=== PATIENT | male | born 1945 | race Caucasian/White ===

== ENCOUNTER → 2020-07-07 | Outpatient (REF) | payer MEDICARE, OTHER | LOC: M LAB REF 19:04 | PROVIDERS: ATTEND Dermatology | DX: C44.712 Basal cell carcinoma of skin of right lower limb, including hip (principal); L90.5 Scar conditions and fibrosis of skin ==

== ENCOUNTER 2021-08-17 14:26 | Emergency (ER) | payer OTHER, MEDICARE ==
[~2021-08-17] VITALS: Ht 185.4 cm; Wt 115.9 kg
[2021-08-17] MEDS ORDERED: LISI20TA35 (14:38)
[2021-08-17] MEDS ORDERED: LATA0.0015 (14:38)
[2021-08-17] MEDS ORDERED: ATOR40TA75 (14:38)
[2021-08-17 16:05] LABS: BASO % 0.4 % (0.0-1.0); EOS % 0.6 % (0.0-3.0); HEMATOCRIT 41.2 % (42.0-52.0); HEMOGLOBIN 14.3 g/dl (13.5-17.5); LYMPH # 2.1 10^3/uL (1.5-5.0); LYMPH % 31.4 % (24.0-44.0); MEAN CORPUSCULAR HEMOGLOBIN 32.2 pg (27.0-33.0); MEAN CORPUSCULAR HGB CONC 34.7 g/dl (32.0-36.5); MEAN CORPUSCULAR VOLUME 92.8 fl (80.0-96.0); MONO # 1.1 10^3/uL (0.0-0.8); MONO % 16.1 % (2.0-8.0); NEUTROPHILS # 3.4 10^3/uL (1.5-8.5); NEUTROPHILS % 50.3 % (36.0-66.0); PLATELET COUNT, AUTOMATED 147 10^3/uL (150-450); RED BLOOD COUNT 4.44 10^6/uL (4.30-6.10); WHITE BLOOD COUNT 6.7 10^3/uL (4.0-10.0)
[2021-08-17 16:37] LABS: ALBUMIN 3.8 GM/DL (3.2-5.2); ALT/SGPT 56 U/L (12-78); BILIRUBIN,DIRECT 0.1 MG/DL (0.0-0.2); BILIRUBIN,TOTAL 0.6 MG/DL (0.2-1.0); BLOOD UREA NITROGEN 18 MG/DL (7-18); CARBON DIOXIDE LEVEL 30 MEQ/L (21-32); CHLORIDE LEVEL 105 MEQ/L (98-107); CREATININE FOR GFR 1.11 MG/DL (0.70-1.30); GLOMERULAR FILTRATION RATE > 60.0 (>42); GLUCOSE, FASTING 166 MG/DL (70-100); SODIUM LEVEL 139 MEQ/L (136-145); TOTAL PROTEIN 6.9 GM/DL (6.4-8.2)
[2021-08-17] MEDS ORDERED: PROHANCE 279.3MG/ML 15ML VIAL As Ordered ONE (17:28)
[2021-08-17] MEDS ORDERED: PROHANCE 279.3MG/ML 5ML VIAL As Ordered ONE (17:28)
[2021-08-17 21:51] LABS: RSV AMPLIFICATION NEGATIVE (NEGATIVE)
[2021-08-17 23:34] VITALS: BP 131/76
== END 2021-08-17 23:37 | disposition short-term general hospital (02) ==
LOC: M ED 14:26
DX: M46.42 Discitis, unspecified, cervical region (principal); G37.9 Demyelinating disease of central nervous system, unspecified; R94.31 Abnormal electrocardiogram [ECG] [EKG]; I10 Essential (primary) hypertension; E78.5 Hyperlipidemia, unspecified; Z79.811 Long term (current) use of aromatase inhibitors; Z79.899 Other long term (current) drug therapy
CPT/HCPCS: 36415; 72156; 72158; 80048; 80076; 85025; 87631; 93005; 99285; A9576

== ENCOUNTER 2021-08-26 10:28 | Inpatient (IN) | payer OTHER, MEDICARE ==
[~2021-08-26] VITALS: Ht 185.4 cm; Wt 110.1 kg
[~2021-08-26 10:28] MED LIST: ATOR40TA75 PO; LATA0.0015; LISI20TA35 PO
[2021-08-26] MEDS ORDERED: GLUCAGON INJ 1MG VIAL SC PRN (12:20)
[2021-08-26] MEDS ORDERED: GLUCOSE 4GM CHEW TABLET PO PRN (12:20)
[2021-08-26] MEDS ORDERED: DEXTROSE 50% 50 ML SYRINGE IV PRN (12:20)
[2021-08-26 13:30] VITALS: BP 155/88
[2021-08-26] MEDS ORDERED: ACET1TAB55 PO (15:00)
[2021-08-26] MEDS ORDERED: ENEMENE PR (15:00)
[2021-08-26] MEDS ORDERED: LUTE20CA7 PO (15:00)
[2021-08-26] MEDS ORDERED: HOME MED LIST COMPLETE! XX SCH (15:00)
[2021-08-26] MEDS ORDERED: DOCU100C16 PO (15:00)
[2021-08-26] MEDS ORDERED: COEN100T PO (15:00)
[2021-08-26] MEDS ORDERED: BISA10SU4 PR (15:00)
[2021-08-26] MEDS ORDERED: CENT1TAB PO (15:00)
[2021-08-26] MEDS ORDERED: LANTINJ4 SC (15:00)
[2021-08-26] MEDS ORDERED: METF-838 PO (15:00)
[2021-08-26] MEDS ORDERED: KETO2SHA8 TOP (15:00)
[2021-08-26] MEDS ORDERED: MILKSUS3 PO (15:00)
[2021-08-26] MEDS ORDERED: SENN-80 PO (15:00)
[2021-08-26] MEDS ORDERED: BIMA01SOL OU (15:00)
[2021-08-26] MEDS ORDERED: MIRA3350 PO (15:00)
[2021-08-26] MEDS ORDERED: HUMA100I5 SC (15:00)
[2021-08-26] MEDS ORDERED: OXYC-517 PO (15:00)
[2021-08-26] MEDS: ACETAMINOPHEN 500 MG TAB PO SCH ×2 (16:12→20:59)
[2021-08-26] MEDS: oxyCODONE 5MG TAB PO PRN (16:15)
[2021-08-26] MEDS: HumaLOG INSULIN (NovoLOG) PER UNIT SC SCH ×2 (17:22→21:00)
[2021-08-26] MEDS: REMEDY PHYTOPLEX Z-GUARD PASTE 113GM TUBE (FROM STOREROOM PRODUCT) TOP SCH ×2 (17:23→23:19)
[2021-08-26] MEDS ORDERED: FLEET ENEMA PR ONE (18:00)
[2021-08-26 20:00] VITALS: BP 140/77
[2021-08-26] MEDS: SENNA 8.6 MG TAB (SENOKOT) PO SCH (20:59)
[2021-08-26] MEDS: CO-ENZYME Q10 50 MG CAP PO SCH (20:59)
[2021-08-26] MEDS ORDERED: BISACODYL 10 MG SUPP PR SCH (21:00)
[2021-08-26] MEDS: DOCUSATE SODIUM 100MG CAPSULE PO SCH (21:00)
[2021-08-26] MEDS: ATORVASTATIN 20 MG TAB PO SCH (21:00)
[2021-08-26] MEDS: LEVEMIR (INSULIN DETEMIR) 1 UNITS/0.01ML SC SCH (21:01)
[2021-08-26] MEDS: RAMELTEON 8 MG TAB (ROZEREM) PO PRN (22:31)
[2021-08-27] MEDS: REMEDY PHYTOPLEX Z-GUARD PASTE 113GM TUBE (FROM STOREROOM PRODUCT) TOP SCH ×3 (05:42→17:26)
[2021-08-27 06:00] VITALS: BP 140/83
[2021-08-27 07:53] LABS: BASO # 0.1 10^3/uL (0.0-0.2); BASO % 0.5 % (0.0-1.0); EOS # 0.1 10^3/uL (0.0-0.5); HEMATOCRIT 36.8 % (42.0-52.0); HEMOGLOBIN 12.5 g/dl (13.5-17.5); LYMPH # 1.6 10^3/uL (1.5-5.0); LYMPH % 16.4 % (24.0-44.0); MEAN CORPUSCULAR HEMOGLOBIN 32.1 pg (27.0-33.0); MEAN CORPUSCULAR VOLUME 94.4 fl (80.0-96.0); MONO % 16.4 % (2.0-8.0); NEUTROPHILS # 6.2 10^3/uL (1.5-8.5); NEUTROPHILS % 64.4 % (36.0-66.0); PLATELET COUNT, AUTOMATED 206 10^3/uL (150-450); WHITE BLOOD COUNT 9.7 10^3/uL (4.0-10.0)
[2021-08-27 08:24] LABS: MONO # 1.6 10^3/uL (0.0-0.8)
[2021-08-27 08:30] LABS: ALBUMIN 2.4 GM/DL (3.2-5.2); ALT/SGPT 58 U/L (12-78); BILIRUBIN,TOTAL 0.4 MG/DL (0.2-1.0); BLOOD UREA NITROGEN 27 MG/DL (7-18); CALCIUM LEVEL 8.6 MG/DL (8.8-10.2); CARBON DIOXIDE LEVEL 32 MEQ/L (21-32); CHLORIDE LEVEL 103 MEQ/L (98-107); GLOMERULAR FILTRATION RATE > 60.0 (>42); GLUCOSE, FASTING 159 MG/DL (70-100); POTASSIUM SERUM 4.2 MEQ/L (3.5-5.1); SODIUM LEVEL 139 MEQ/L (136-145); TOTAL PROTEIN 6.1 GM/DL (6.4-8.2)
[2021-08-27] MEDS ORDERED: BISACODYL 10 MG SUPP PR ONE (09:15)
[2021-08-27] MEDS: HumaLOG INSULIN (NovoLOG) PER UNIT SC SCH ×4 (09:22→20:38)
[2021-08-27] MEDS: CO-ENZYME Q10 50 MG CAP PO SCH ×2 (09:35→20:37)
[2021-08-27] MEDS: DOCUSATE SODIUM 100MG CAPSULE PO SCH ×2 (09:35→20:37)
[2021-08-27] MEDS: lisinopriL 40MG TAB PO SCH (09:36)
[2021-08-27] MEDS: MIRALAX *UNIT DOSE* 17GM PACKET PO SCH (09:36)
[2021-08-27] MEDS: MULTIVITAMINS/MINERALS THERAP 1 TAB PO SCH (09:37)
[2021-08-27] MEDS: PANTOPRAZOLE 40MG TAB (PROTONIX) PO SCH (09:37)
[2021-08-27] MEDS: ACETAMINOPHEN 500 MG TAB PO SCH ×3 (09:39→20:37)
[2021-08-27] MEDS: ENOXAPARIN 40MG/0.4ML SYRINGE (J1650 PER 10MG) SC SCH (09:39)
[2021-08-27] MEDS: oxyCODONE 5MG TAB PO PRN (10:27)
[2021-08-27] MEDS ORDERED: DICLOFENAC EPOLAMINE 1.3 % PATCH TOP SCH (11:30)
[2021-08-27 14:00] VITALS: BP 139/78
[2021-08-27] MEDS: LIDOCAINE 5% (LIDODERM) PATCH TD SCH (15:22)
[2021-08-27 20:00] VITALS: BP 146/92
[2021-08-27] MEDS: BISACODYL 10 MG SUPP PR SCH (20:37)
[2021-08-27] MEDS: SENNA 8.6 MG TAB (SENOKOT) PO SCH (20:37)
[2021-08-27] MEDS: ATORVASTATIN 20 MG TAB PO SCH (20:37)
[2021-08-27] MEDS: LEVEMIR (INSULIN DETEMIR) 1 UNITS/0.01ML SC SCH (20:38)
[2021-08-27] MEDS: RAMELTEON 8 MG TAB (ROZEREM) PO PRN (21:47)
[2021-08-28] MEDS: oxyCODONE 5MG TAB PO PRN ×2 (04:52→08:45)
[2021-08-28 06:00] VITALS: BP 148/90
[2021-08-28] MEDS: REMEDY PHYTOPLEX Z-GUARD PASTE 113GM TUBE (FROM STOREROOM PRODUCT) TOP SCH ×5 (06:00→23:22)
[2021-08-28] MEDS: HumaLOG INSULIN (NovoLOG) PER UNIT SC SCH ×4 (07:23→20:27)
[2021-08-28] MEDS: DOCUSATE SODIUM 100MG CAPSULE PO SCH ×2 (08:40→20:26)
[2021-08-28] MEDS: CO-ENZYME Q10 50 MG CAP PO SCH ×2 (08:40→20:26)
[2021-08-28] MEDS: MIRALAX *UNIT DOSE* 17GM PACKET PO SCH (08:41)
[2021-08-28] MEDS: PANTOPRAZOLE 40MG TAB (PROTONIX) PO SCH (08:42)
[2021-08-28] MEDS: lisinopriL 40MG TAB PO SCH (08:42)
[2021-08-28] MEDS: MULTIVITAMINS/MINERALS THERAP 1 TAB PO SCH (08:42)
[2021-08-28] MEDS: ACETAMINOPHEN 500 MG TAB PO SCH ×3 (08:43→20:26)
[2021-08-28] MEDS: ENOXAPARIN 40MG/0.4ML SYRINGE (J1650 PER 10MG) SC SCH (08:44)
[2021-08-28] MEDS: LIDOCAINE 5% (LIDODERM) PATCH TD SCH (08:44)
[2021-08-28] MEDS ORDERED: LATA0.0015 OU (09:40)
[2021-08-28] MEDS: amLODIPine 5 MG TAB PO SCH (12:40)
[2021-08-28 14:00] VITALS: BP 122/62
[2021-08-28] MEDS: BISACODYL 10 MG SUPP PR SCH (15:33)
[2021-08-28 20:00] VITALS: BP 136/82
[2021-08-28] MEDS: RAMELTEON 8 MG TAB (ROZEREM) PO PRN (20:26)
[2021-08-28] MEDS: SENNA 8.6 MG TAB (SENOKOT) PO SCH (20:26)
[2021-08-28] MEDS: LATANOPROST 0.005% OPHTH SOLN 2.5 ML OU SCH (20:26)
[2021-08-28] MEDS: ATORVASTATIN 20 MG TAB PO SCH (20:26)
[2021-08-28] MEDS: LEVEMIR (INSULIN DETEMIR) 1 UNITS/0.01ML SC SCH (20:27)
[2021-08-29] MEDS: REMEDY PHYTOPLEX Z-GUARD PASTE 113GM TUBE (FROM STOREROOM PRODUCT) TOP SCH ×3 (05:30→16:49)
[2021-08-29 06:00] VITALS: BP 120/80
[2021-08-29] MEDS: HumaLOG INSULIN (NovoLOG) PER UNIT SC SCH ×4 (07:20→20:14)
[2021-08-29] MEDS: DOCUSATE SODIUM 100MG CAPSULE PO SCH ×2 (08:22→20:13)
[2021-08-29] MEDS: CO-ENZYME Q10 50 MG CAP PO SCH ×2 (08:22→20:13)
[2021-08-29] MEDS: MIRALAX *UNIT DOSE* 17GM PACKET PO SCH (08:23)
[2021-08-29] MEDS: amLODIPine 5 MG TAB PO SCH (08:24)
[2021-08-29] MEDS: lisinopriL 40MG TAB PO SCH (08:24)
[2021-08-29] MEDS: PANTOPRAZOLE 40MG TAB (PROTONIX) PO SCH (08:24)
[2021-08-29] MEDS: MULTIVITAMINS/MINERALS THERAP 1 TAB PO SCH (08:25)
[2021-08-29] MEDS: ACETAMINOPHEN 500 MG TAB PO SCH ×3 (08:25→20:13)
[2021-08-29] MEDS: ENOXAPARIN 40MG/0.4ML SYRINGE (J1650 PER 10MG) SC SCH (08:26)
[2021-08-29] MEDS: LIDOCAINE 5% (LIDODERM) PATCH TD SCH (08:26)
[2021-08-29 14:00] VITALS: BP 138/68
[2021-08-29] MEDS: BISACODYL 10 MG SUPP PR SCH (15:17)
[2021-08-29 19:56] VITALS: BP 137/80
[2021-08-29] MEDS: SENNA 8.6 MG TAB (SENOKOT) PO SCH (20:13)
[2021-08-29] MEDS: ATORVASTATIN 20 MG TAB PO SCH (20:13)
[2021-08-29] MEDS: LEVEMIR (INSULIN DETEMIR) 1 UNITS/0.01ML SC SCH (20:14)
[2021-08-29] MEDS: LATANOPROST 0.005% OPHTH SOLN 2.5 ML OU SCH (20:15)
[2021-08-29] MEDS: RAMELTEON 8 MG TAB (ROZEREM) PO PRN (21:28)
[2021-08-30] MEDS: oxyCODONE 5MG TAB PO PRN (00:35)
[2021-08-30] MEDS: REMEDY PHYTOPLEX Z-GUARD PASTE 113GM TUBE (FROM STOREROOM PRODUCT) TOP SCH ×4 (05:02→17:29)
[2021-08-30 05:42] VITALS: BP 133/77
[2021-08-30 09:13] LABS: BASO % 0.3 % (0.0-1.0); EOS # 0.1 10^3/uL (0.0-0.5); EOS % 1.1 % (0.0-3.0); HEMATOCRIT 37.5 % (42.0-52.0); HEMOGLOBIN 12.6 g/dl (13.5-17.5); LYMPH # 1.2 10^3/uL (1.5-5.0); MEAN CORPUSCULAR HEMOGLOBIN 31.7 pg (27.0-33.0); MEAN CORPUSCULAR HGB CONC 33.6 g/dl (32.0-36.5); MEAN CORPUSCULAR VOLUME 94.5 fl (80.0-96.0); MONO # 0.9 10^3/uL (0.0-0.8); MONO % 15.4 % (2.0-8.0); NEUTROPHILS # 3.8 10^3/uL (1.5-8.5); NEUTROPHILS % 61.7 % (36.0-66.0); PLATELET COUNT, AUTOMATED 246 10^3/uL (150-450); RED BLOOD COUNT 3.97 10^6/uL (4.30-6.10); WHITE BLOOD COUNT 6.1 10^3/uL (4.0-10.0)
[2021-08-30 09:36] LABS: BLOOD UREA NITROGEN 26 MG/DL (7-18); CALCIUM LEVEL 8.4 MG/DL (8.8-10.2); CARBON DIOXIDE LEVEL 31 MEQ/L (21-32); CHLORIDE LEVEL 103 MEQ/L (98-107); CREATININE FOR GFR 1.03 MG/DL (0.70-1.30); GLOMERULAR FILTRATION RATE > 60.0 (>42); GLUCOSE, FASTING 229 MG/DL (70-100); POTASSIUM SERUM 4.5 MEQ/L (3.5-5.1); SODIUM LEVEL 138 MEQ/L (136-145)
[2021-08-30] MEDS: HumaLOG INSULIN (NovoLOG) PER UNIT SC SCH ×4 (10:10→20:47)
[2021-08-30] MEDS: ENOXAPARIN 40MG/0.4ML SYRINGE (J1650 PER 10MG) SC SCH (10:11)
[2021-08-30] MEDS: CO-ENZYME Q10 50 MG CAP PO SCH ×2 (10:12→20:46)
[2021-08-30] MEDS: lisinopriL 40MG TAB PO SCH (10:12)
[2021-08-30] MEDS: DOCUSATE SODIUM 100MG CAPSULE PO SCH ×2 (10:12→20:52)
[2021-08-30] MEDS: MULTIVITAMINS/MINERALS THERAP 1 TAB PO SCH (10:12)
[2021-08-30] MEDS: MIRALAX *UNIT DOSE* 17GM PACKET PO SCH (10:12)
[2021-08-30] MEDS: PANTOPRAZOLE 40MG TAB (PROTONIX) PO SCH (10:13)
[2021-08-30] MEDS: metFORMIN (GLUCOPHAGE) 500MG TAB PO SCH (10:13)
[2021-08-30] MEDS: ACETAMINOPHEN 500 MG TAB PO SCH ×3 (10:14→20:46)
[2021-08-30] MEDS: amLODIPine 5 MG TAB PO SCH (10:14)
[2021-08-30] MEDS: LIDOCAINE 5% (LIDODERM) PATCH TD SCH (10:15)
[2021-08-30 14:00] VITALS: BP 142/85
[2021-08-30] MEDS: BISACODYL 10 MG SUPP PR SCH ×2 (15:47→16:00)
[2021-08-30] MEDS: ATORVASTATIN 20 MG TAB PO SCH (20:46)
[2021-08-30] MEDS: RAMELTEON 8 MG TAB (ROZEREM) PO PRN (20:46)
[2021-08-30] MEDS: LEVEMIR (INSULIN DETEMIR) 1 UNITS/0.01ML SC SCH (20:47)
[2021-08-30] MEDS: SENNA 8.6 MG TAB (SENOKOT) PO SCH (20:52)
[2021-08-30] MEDS: LATANOPROST 0.005% OPHTH SOLN 2.5 ML OU SCH (20:52)
[2021-08-31] MEDS: REMEDY PHYTOPLEX Z-GUARD PASTE 113GM TUBE (FROM STOREROOM PRODUCT) TOP SCH ×5 (00:04→21:08)
[2021-08-31 06:30] VITALS: BP 150/74
[2021-08-31 08:45] VITALS: BP 142/85
[2021-08-31] MEDS: MIRALAX *UNIT DOSE* 17GM PACKET PO SCH (09:29)
[2021-08-31] MEDS: HumaLOG INSULIN (NovoLOG) PER UNIT SC SCH ×4 (09:29→21:00)
[2021-08-31] MEDS: CO-ENZYME Q10 50 MG CAP PO SCH ×2 (09:30→21:05)
[2021-08-31] MEDS: DOCUSATE SODIUM 100MG CAPSULE PO SCH ×2 (09:30→21:06)
[2021-08-31] MEDS: MULTIVITAMINS/MINERALS THERAP 1 TAB PO SCH (09:30)
[2021-08-31] MEDS: PANTOPRAZOLE 40MG TAB (PROTONIX) PO SCH (09:30)
[2021-08-31] MEDS: ACETAMINOPHEN 500 MG TAB PO SCH ×3 (09:31→21:05)
[2021-08-31] MEDS: amLODIPine 5 MG TAB PO SCH (09:31)
[2021-08-31] MEDS: lisinopriL 40MG TAB PO SCH (09:31)
[2021-08-31] MEDS: LIDOCAINE 5% (LIDODERM) PATCH TD SCH (09:32)
[2021-08-31] MEDS: ENOXAPARIN 40MG/0.4ML SYRINGE (J1650 PER 10MG) SC SCH (09:32)
[2021-08-31] MEDS: metFORMIN (GLUCOPHAGE) 500MG TAB PO SCH (09:38)
[2021-08-31 14:47] VITALS: BP 133/71
[2021-08-31] MEDS: BISACODYL 10 MG SUPP PR SCH (16:00)
[2021-08-31 20:00] VITALS: BP 136/77
[2021-08-31] MEDS: RAMELTEON 8 MG TAB (ROZEREM) PO SCH (21:05)
[2021-08-31] MEDS: SENNA 8.6 MG TAB (SENOKOT) PO SCH (21:05)
[2021-08-31] MEDS: ATORVASTATIN 20 MG TAB PO SCH (21:06)
[2021-08-31] MEDS: LATANOPROST 0.005% OPHTH SOLN 2.5 ML OU SCH (21:06)
[2021-08-31] MEDS: LEVEMIR (INSULIN DETEMIR) 1 UNITS/0.01ML SC SCH (21:07)
[2021-08-31] MEDS: CYCLOBENZAPRINE 5MG TABLET PO PRN (21:42)
[2021-09-01] MEDS: oxyCODONE 5MG TAB PO PRN (01:35)
[2021-09-01] MEDS: REMEDY PHYTOPLEX Z-GUARD PASTE 113GM TUBE (FROM STOREROOM PRODUCT) TOP SCH ×3 (05:00→17:45)
[2021-09-01 06:00] VITALS: BP 138/80
[2021-09-01 07:16] LABS: BASO % 0.4 % (0.0-1.0); EOS # 0.1 10^3/uL (0.0-0.5); HEMATOCRIT 38.2 % (42.0-52.0); HEMOGLOBIN 12.8 g/dl (13.5-17.5); LYMPH # 1.7 10^3/uL (1.5-5.0); LYMPH % 25.7 % (24.0-44.0); MEAN CORPUSCULAR HEMOGLOBIN 32.1 pg (27.0-33.0); MEAN CORPUSCULAR HGB CONC 33.5 g/dl (32.0-36.5); MEAN CORPUSCULAR VOLUME 95.7 fl (80.0-96.0); MONO # 1.2 10^3/uL (0.0-0.8); MONO % 17.4 % (2.0-8.0); NEUTROPHILS # 3.6 10^3/uL (1.5-8.5); NEUTROPHILS % 53.3 % (36.0-66.0); PLATELET COUNT, AUTOMATED 253 10^3/uL (150-450); RED BLOOD COUNT 3.99 10^6/uL (4.30-6.10); WHITE BLOOD COUNT 6.7 10^3/uL (4.0-10.0)
[2021-09-01 07:27] LABS: BLOOD UREA NITROGEN 24 MG/DL (7-18); CALCIUM LEVEL 8.3 MG/DL (8.8-10.2); CARBON DIOXIDE LEVEL 29 MEQ/L (21-32); CHLORIDE LEVEL 104 MEQ/L (98-107); CREATININE FOR GFR 0.92 MG/DL (0.70-1.30); GLOMERULAR FILTRATION RATE > 60.0 (>42); GLUCOSE, FASTING 128 MG/DL (70-100); POTASSIUM SERUM 4.4 MEQ/L (3.5-5.1); SODIUM LEVEL 139 MEQ/L (136-145)
[2021-09-01] MEDS: MIRALAX *UNIT DOSE* 17GM PACKET PO SCH (08:59)
[2021-09-01] MEDS: DOCUSATE SODIUM 100MG CAPSULE PO SCH ×2 (08:59→20:48)
[2021-09-01] MEDS: LIDOCAINE 5% (LIDODERM) PATCH TD SCH (08:59)
[2021-09-01] MEDS: PANTOPRAZOLE 40MG TAB (PROTONIX) PO SCH (09:00)
[2021-09-01] MEDS: CO-ENZYME Q10 50 MG CAP PO SCH ×2 (09:00→20:44)
[2021-09-01] MEDS: metFORMIN (GLUCOPHAGE) 500MG TAB PO SCH (09:00)
[2021-09-01] MEDS: MULTIVITAMINS/MINERALS THERAP 1 TAB PO SCH (09:00)
[2021-09-01] MEDS: amLODIPine 5 MG TAB PO SCH (09:01)
[2021-09-01] MEDS: lisinopriL 40MG TAB PO SCH (09:01)
[2021-09-01] MEDS: HumaLOG INSULIN (NovoLOG) PER UNIT SC SCH ×4 (09:01→20:48)
[2021-09-01] MEDS: ENOXAPARIN 40MG/0.4ML SYRINGE (J1650 PER 10MG) SC SCH (09:02)
[2021-09-01] MEDS: ACETAMINOPHEN 500 MG TAB PO SCH ×3 (09:02→20:44)
[2021-09-01] MEDS: LACTOBACILLUS ACIDOPHILUS CAP (BACID) PO SCH ×3 (13:13→20:43)
[2021-09-01] MEDS: CEPHALEXIN 500 MG CAP PO SCH ×3 (13:13→20:43)
[2021-09-01 14:00] VITALS: BP 140/77
[2021-09-01] MEDS: BISACODYL 10 MG SUPP PR SCH (16:00)
[2021-09-01 20:00] VITALS: BP 135/75
[2021-09-01] MEDS: ATORVASTATIN 20 MG TAB PO SCH (20:43)
[2021-09-01] MEDS: GABAPENTIN 300 MG CAP PO SCH (20:44)
[2021-09-01] MEDS: LEVEMIR (INSULIN DETEMIR) 1 UNITS/0.01ML SC SCH (20:44)
[2021-09-01] MEDS: SENNA 8.6 MG TAB (SENOKOT) PO SCH (20:48)
[2021-09-01] MEDS: RAMELTEON 8 MG TAB (ROZEREM) PO SCH (20:49)
[2021-09-01] MEDS: LATANOPROST 0.005% OPHTH SOLN 2.5 ML OU SCH (20:49)
[2021-09-02] MEDS: REMEDY PHYTOPLEX Z-GUARD PASTE 113GM TUBE (FROM STOREROOM PRODUCT) TOP SCH ×4 (05:53→17:44)
[2021-09-02 06:00] VITALS: BP 152/90
[2021-09-02] MEDS: ENOXAPARIN 40MG/0.4ML SYRINGE (J1650 PER 10MG) SC SCH (09:14)
[2021-09-02] MEDS: HumaLOG INSULIN (NovoLOG) PER UNIT SC SCH ×4 (09:14→21:00)
[2021-09-02] MEDS: PANTOPRAZOLE 40MG TAB (PROTONIX) PO SCH (09:15)
[2021-09-02] MEDS: metFORMIN (GLUCOPHAGE) 500MG TAB PO SCH (09:15)
[2021-09-02] MEDS: MULTIVITAMINS/MINERALS THERAP 1 TAB PO SCH (09:15)
[2021-09-02] MEDS: CO-ENZYME Q10 50 MG CAP PO SCH ×2 (09:15→21:03)
[2021-09-02] MEDS: DOCUSATE SODIUM 100MG CAPSULE PO SCH ×2 (09:15→21:02)
[2021-09-02] MEDS: CEPHALEXIN 500 MG CAP PO SCH ×4 (09:15→21:02)
[2021-09-02] MEDS: LACTOBACILLUS ACIDOPHILUS CAP (BACID) PO SCH ×4 (09:15→21:02)
[2021-09-02] MEDS: ACETAMINOPHEN 500 MG TAB PO SCH ×3 (09:16→21:02)
[2021-09-02] MEDS: MIRALAX *UNIT DOSE* 17GM PACKET PO SCH (09:16)
[2021-09-02] MEDS: amLODIPine 5 MG TAB PO SCH (09:16)
[2021-09-02] MEDS: lisinopriL 40MG TAB PO SCH (09:16)
[2021-09-02] MEDS: LIDOCAINE 5% (LIDODERM) PATCH TD SCH (09:17)
[2021-09-02 14:00] VITALS: BP 138/76
[2021-09-02] MEDS: BISACODYL 10 MG SUPP PR SCH (17:43)
[2021-09-02 20:00] VITALS: BP_SYST 132; BP_SYST 134; BP_DIAS 79; BP_DIAS 80
[2021-09-02] MEDS: GABAPENTIN 300 MG CAP PO SCH (21:02)
[2021-09-02] MEDS: SENNA 8.6 MG TAB (SENOKOT) PO SCH (21:02)
[2021-09-02] MEDS: ATORVASTATIN 20 MG TAB PO SCH (21:03)
[2021-09-02] MEDS: LEVEMIR (INSULIN DETEMIR) 1 UNITS/0.01ML SC SCH (21:03)
[2021-09-02] MEDS: RAMELTEON 8 MG TAB (ROZEREM) PO SCH (21:04)
[2021-09-02] MEDS: LATANOPROST 0.005% OPHTH SOLN 2.5 ML OU SCH (21:04)
[2021-09-03] MEDS: REMEDY PHYTOPLEX Z-GUARD PASTE 113GM TUBE (FROM STOREROOM PRODUCT) TOP SCH ×5 (05:36→21:20)
[2021-09-03 05:44] VITALS: BP 150/88
[2021-09-03] MEDS: MULTIVITAMINS/MINERALS THERAP 1 TAB PO SCH (08:26)
[2021-09-03] MEDS: HumaLOG INSULIN (NovoLOG) PER UNIT SC SCH ×4 (08:26→21:00)
[2021-09-03] MEDS: DOCUSATE SODIUM 100MG CAPSULE PO SCH ×2 (08:26→21:00)
[2021-09-03] MEDS: PANTOPRAZOLE 40MG TAB (PROTONIX) PO SCH (08:26)
[2021-09-03] MEDS: MIRALAX *UNIT DOSE* 17GM PACKET PO SCH (08:26)
[2021-09-03] MEDS: CO-ENZYME Q10 50 MG CAP PO SCH ×2 (08:27→21:11)
[2021-09-03] MEDS: ACETAMINOPHEN 500 MG TAB PO SCH ×3 (08:27→21:12)
[2021-09-03] MEDS: LACTOBACILLUS ACIDOPHILUS CAP (BACID) PO SCH ×4 (08:27→21:13)
[2021-09-03] MEDS: CEPHALEXIN 500 MG CAP PO SCH ×4 (08:27→21:09)
[2021-09-03] MEDS: metFORMIN (GLUCOPHAGE) 500MG TAB PO SCH (08:27)
[2021-09-03] MEDS: amLODIPine 5 MG TAB PO SCH (08:28)
[2021-09-03] MEDS: lisinopriL 40MG TAB PO SCH (08:28)
[2021-09-03] MEDS: ENOXAPARIN 40MG/0.4ML SYRINGE (J1650 PER 10MG) SC SCH (08:28)
[2021-09-03] MEDS: LIDOCAINE 5% (LIDODERM) PATCH TD SCH (08:29)
[2021-09-03 08:55] LABS: BASO # 0.1 10^3/uL (0.0-0.2); BASO % 0.7 % (0.0-1.0); EOS # 0.1 10^3/uL (0.0-0.5); EOS % 0.7 % (0.0-3.0); HEMATOCRIT 38.9 % (42.0-52.0); HEMOGLOBIN 13.1 g/dl (13.5-17.5); LYMPH # 1.7 10^3/uL (1.5-5.0); MEAN CORPUSCULAR HGB CONC 33.7 g/dl (32.0-36.5); MEAN CORPUSCULAR VOLUME 94.9 fl (80.0-96.0); MONO # 1.2 10^3/uL (0.0-0.8); MONO % 15.1 % (2.0-8.0); NEUTROPHILS # 4.4 10^3/uL (1.5-8.5); PLATELET COUNT, AUTOMATED 282 10^3/uL (150-450); WHITE BLOOD COUNT 7.6 10^3/uL (4.0-10.0)
[2021-09-03 09:17] LABS: BLOOD UREA NITROGEN 29 MG/DL (7-18); CARBON DIOXIDE LEVEL 26 MEQ/L (21-32); CHLORIDE LEVEL 106 MEQ/L (98-107); CREATININE FOR GFR 1.13 MG/DL (0.70-1.30); GLOMERULAR FILTRATION RATE > 60.0 (>42); GLUCOSE, FASTING 200 MG/DL (70-100); POTASSIUM SERUM 4.3 MEQ/L (3.5-5.1); SODIUM LEVEL 138 MEQ/L (136-145)
[2021-09-03 14:00] VITALS: BP 148/92
[2021-09-03] MEDS: BISACODYL 10 MG SUPP PR SCH (16:00)
[2021-09-03 20:08] VITALS: BP 130/77
[2021-09-03] MEDS: SENNA 8.6 MG TAB (SENOKOT) PO SCH (21:00)
[2021-09-03] MEDS: CYCLOBENZAPRINE 5MG TABLET PO PRN (21:09)
[2021-09-03] MEDS: traZODone 25MG PER 1/2 TABLET PO PRN (21:09)
[2021-09-03] MEDS: GABAPENTIN 300 MG CAP PO SCH (21:09)
[2021-09-03] MEDS: RAMELTEON 8 MG TAB (ROZEREM) PO SCH (21:09)
[2021-09-03] MEDS: oxyCODONE 5MG TAB PO PRN (21:11)
[2021-09-03] MEDS: ATORVASTATIN 20 MG TAB PO SCH (21:11)
[2021-09-03] MEDS: LEVEMIR (INSULIN DETEMIR) 1 UNITS/0.01ML SC SCH (21:18)
[2021-09-03] MEDS: LATANOPROST 0.005% OPHTH SOLN 2.5 ML OU SCH (21:19)
[2021-09-04 05:23] VITALS: BP 123/70
[2021-09-04] MEDS: REMEDY PHYTOPLEX Z-GUARD PASTE 113GM TUBE (FROM STOREROOM PRODUCT) TOP SCH ×3 (05:28→17:59)
[2021-09-04] MEDS: metFORMIN (GLUCOPHAGE) 500MG TAB PO SCH (08:33)
[2021-09-04] MEDS: HumaLOG INSULIN (NovoLOG) PER UNIT SC SCH ×4 (08:33→20:04)
[2021-09-04] MEDS: LACTOBACILLUS ACIDOPHILUS CAP (BACID) PO SCH ×4 (08:33→20:21)
[2021-09-04] MEDS: amLODIPine 5 MG TAB PO SCH (08:34)
[2021-09-04] MEDS: CO-ENZYME Q10 50 MG CAP PO SCH ×2 (08:34→20:02)
[2021-09-04] MEDS: CEPHALEXIN 500 MG CAP PO SCH ×4 (08:34→20:02)
[2021-09-04] MEDS: ACETAMINOPHEN 500 MG TAB PO SCH ×3 (08:35→20:21)
[2021-09-04] MEDS: PANTOPRAZOLE 40MG TAB (PROTONIX) PO SCH (08:35)
[2021-09-04] MEDS: lisinopriL 40MG TAB PO SCH (08:35)
[2021-09-04] MEDS: MULTIVITAMINS/MINERALS THERAP 1 TAB PO SCH (08:35)
[2021-09-04] MEDS: ENOXAPARIN 40MG/0.4ML SYRINGE (J1650 PER 10MG) SC SCH (08:36)
[2021-09-04] MEDS: LIDOCAINE 5% (LIDODERM) PATCH TD SCH (08:36)
[2021-09-04] MEDS: oxyCODONE 5MG TAB PO PRN (08:47)
[2021-09-04] MEDS: MIRALAX *UNIT DOSE* 17GM PACKET PO SCH (08:48)
[2021-09-04] MEDS: DOCUSATE SODIUM 100MG CAPSULE PO SCH ×2 (08:48→20:03)
[2021-09-04 14:00] VITALS: BP 131/84
[2021-09-04] MEDS: BISACODYL 10 MG SUPP PR SCH (17:54)
[2021-09-04 19:43] VITALS: BP 136/70
[2021-09-04] MEDS: ATORVASTATIN 20 MG TAB PO SCH (20:02)
[2021-09-04] MEDS: SENNA 8.6 MG TAB (SENOKOT) PO SCH (20:02)
[2021-09-04] MEDS: LEVEMIR (INSULIN DETEMIR) 1 UNITS/0.01ML SC SCH (20:03)
[2021-09-04] MEDS: GABAPENTIN 300 MG CAP PO SCH (20:03)
[2021-09-04] MEDS: RAMELTEON 8 MG TAB (ROZEREM) PO SCH (20:03)
[2021-09-04] MEDS: LATANOPROST 0.005% OPHTH SOLN 2.5 ML OU SCH (20:04)
[2021-09-05 05:30] VITALS: BP 122/68
[2021-09-05] MEDS: REMEDY PHYTOPLEX Z-GUARD PASTE 113GM TUBE (FROM STOREROOM PRODUCT) TOP SCH ×4 (05:38→23:25)
[2021-09-05] MEDS: LIDOCAINE 5% (LIDODERM) PATCH TD SCH (07:40)
[2021-09-05] MEDS: HumaLOG INSULIN (NovoLOG) PER UNIT SC SCH ×4 (07:40→20:50)
[2021-09-05] MEDS: LACTOBACILLUS ACIDOPHILUS CAP (BACID) PO SCH ×4 (07:41→20:48)
[2021-09-05] MEDS: ENOXAPARIN 40MG/0.4ML SYRINGE (J1650 PER 10MG) SC SCH (07:41)
[2021-09-05] MEDS: ACETAMINOPHEN 500 MG TAB PO SCH ×3 (07:41→20:49)
[2021-09-05] MEDS: amLODIPine 5 MG TAB PO SCH (07:41)
[2021-09-05] MEDS: CEPHALEXIN 500 MG CAP PO SCH ×4 (07:42→20:49)
[2021-09-05] MEDS: lisinopriL 40MG TAB PO SCH (07:42)
[2021-09-05] MEDS: CO-ENZYME Q10 50 MG CAP PO SCH ×2 (07:42→20:48)
[2021-09-05] MEDS: PANTOPRAZOLE 40MG TAB (PROTONIX) PO SCH (07:42)
[2021-09-05] MEDS: MULTIVITAMINS/MINERALS THERAP 1 TAB PO SCH (07:42)
[2021-09-05] MEDS: metFORMIN (GLUCOPHAGE) 500MG TAB PO SCH (07:43)
[2021-09-05] MEDS: DOCUSATE SODIUM 100MG CAPSULE PO SCH ×2 (07:43→20:49)
[2021-09-05] MEDS: MIRALAX *UNIT DOSE* 17GM PACKET PO SCH (09:00)
[2021-09-05 14:00] VITALS: BP 134/62
[2021-09-05] MEDS: BISACODYL 10 MG SUPP PR SCH ×2 (15:14→16:11)
[2021-09-05 20:30] VITALS: BP 130/62
[2021-09-05] MEDS: SENNA 8.6 MG TAB (SENOKOT) PO SCH (20:48)
[2021-09-05] MEDS: GABAPENTIN 300 MG CAP PO SCH (20:48)
[2021-09-05] MEDS: ATORVASTATIN 20 MG TAB PO SCH (20:48)
[2021-09-05] MEDS: RAMELTEON 8 MG TAB (ROZEREM) PO SCH (20:48)
[2021-09-05] MEDS: LATANOPROST 0.005% OPHTH SOLN 2.5 ML OU SCH (20:49)
[2021-09-05] MEDS: LEVEMIR (INSULIN DETEMIR) 1 UNITS/0.01ML SC SCH (20:49)
[2021-09-06] MEDS: REMEDY PHYTOPLEX Z-GUARD PASTE 113GM TUBE (FROM STOREROOM PRODUCT) TOP SCH ×3 (05:16→19:01)
[2021-09-06 06:00] VITALS: BP 130/72
[2021-09-06 07:06] LABS: BASO % 0.4 % (0.0-1.0); EOS # 0.1 10^3/uL (0.0-0.5); EOS % 0.9 % (0.0-3.0); HEMATOCRIT 38.7 % (42.0-52.0); HEMOGLOBIN 12.9 g/dl (13.5-17.5); LYMPH % 29.4 % (24.0-44.0); MEAN CORPUSCULAR HEMOGLOBIN 31.6 pg (27.0-33.0); MEAN CORPUSCULAR HGB CONC 33.3 g/dl (32.0-36.5); MEAN CORPUSCULAR VOLUME 94.9 fl (80.0-96.0); MONO # 1.3 10^3/uL (0.0-0.8); MONO % 19.6 % (2.0-8.0); NEUTROPHILS # 3.1 10^3/uL (1.5-8.5); NEUTROPHILS % 46.9 % (36.0-66.0); PLATELET COUNT, AUTOMATED 243 10^3/uL (150-450); RED BLOOD COUNT 4.08 10^6/uL (4.30-6.10); WHITE BLOOD COUNT 6.7 10^3/uL (4.0-10.0)
[2021-09-06 07:34] LABS: BLOOD UREA NITROGEN 30 MG/DL (7-18); CALCIUM LEVEL 8.8 MG/DL (8.8-10.2); CARBON DIOXIDE LEVEL 27 MEQ/L (21-32); CHLORIDE LEVEL 105 MEQ/L (98-107); CREATININE FOR GFR 1.04 MG/DL (0.70-1.30); GLOMERULAR FILTRATION RATE > 60.0 (>42); GLUCOSE, FASTING 128 MG/DL (70-100); POTASSIUM SERUM 4.7 MEQ/L (3.5-5.1); SODIUM LEVEL 137 MEQ/L (136-145)
[2021-09-06] MEDS: ENOXAPARIN 40MG/0.4ML SYRINGE (J1650 PER 10MG) SC SCH (08:53)
[2021-09-06] MEDS: HumaLOG INSULIN (NovoLOG) PER UNIT SC SCH ×4 (08:53→20:11)
[2021-09-06] MEDS: LACTOBACILLUS ACIDOPHILUS CAP (BACID) PO SCH ×4 (08:53→21:29)
[2021-09-06] MEDS: CO-ENZYME Q10 50 MG CAP PO SCH ×2 (08:53→21:29)
[2021-09-06] MEDS: PANTOPRAZOLE 40MG TAB (PROTONIX) PO SCH (08:54)
[2021-09-06] MEDS: MIRALAX *UNIT DOSE* 17GM PACKET PO SCH (08:54)
[2021-09-06] MEDS: lisinopriL 40MG TAB PO SCH (08:54)
[2021-09-06] MEDS: metFORMIN (GLUCOPHAGE) 500MG TAB PO SCH (08:54)
[2021-09-06] MEDS: MULTIVITAMINS/MINERALS THERAP 1 TAB PO SCH (08:54)
[2021-09-06] MEDS: DOCUSATE SODIUM 100MG CAPSULE PO SCH ×2 (08:54→21:29)
[2021-09-06] MEDS: CEPHALEXIN 500 MG CAP PO SCH ×4 (08:54→21:30)
[2021-09-06] MEDS: ACETAMINOPHEN 500 MG TAB PO SCH ×3 (08:55→21:30)
[2021-09-06] MEDS: amLODIPine 5 MG TAB PO SCH (08:55)
[2021-09-06] MEDS: LIDOCAINE 5% (LIDODERM) PATCH TD SCH (08:55)
[2021-09-06 14:00] VITALS: BP 133/83
[2021-09-06] MEDS: BISACODYL 10 MG SUPP PR SCH (16:00)
[2021-09-06] MEDS ORDERED: PROHANCE 279.3MG/ML 5ML VIAL As Ordered ONE (17:51)
[2021-09-06] MEDS ORDERED: PROHANCE 279.3MG/ML 15ML VIAL As Ordered ONE (17:51)
[2021-09-06 19:59] VITALS: BP 115/69
[2021-09-06] MEDS: LEVEMIR (INSULIN DETEMIR) 1 UNITS/0.01ML SC SCH (21:29)
[2021-09-06] MEDS: RAMELTEON 8 MG TAB (ROZEREM) PO SCH (21:29)
[2021-09-06] MEDS: GABAPENTIN 300 MG CAP PO SCH (21:29)
[2021-09-06] MEDS: SENNA 8.6 MG TAB (SENOKOT) PO SCH (21:29)
[2021-09-06] MEDS: LATANOPROST 0.005% OPHTH SOLN 2.5 ML OU SCH (21:30)
[2021-09-06] MEDS: ATORVASTATIN 20 MG TAB PO SCH (21:30)
[2021-09-07 05:41] VITALS: BP 133/85
[2021-09-07] MEDS: REMEDY PHYTOPLEX Z-GUARD PASTE 113GM TUBE (FROM STOREROOM PRODUCT) TOP SCH ×5 (06:00→23:23)
[2021-09-07] MEDS: MIRALAX *UNIT DOSE* 17GM PACKET PO SCH (08:13)
[2021-09-07] MEDS: LIDOCAINE 5% (LIDODERM) PATCH TD SCH (08:14)
[2021-09-07] MEDS: ENOXAPARIN 40MG/0.4ML SYRINGE (J1650 PER 10MG) SC SCH (08:15)
[2021-09-07] MEDS: HumaLOG INSULIN (NovoLOG) PER UNIT SC SCH ×4 (08:15→21:00)
[2021-09-07] MEDS: CEPHALEXIN 500 MG CAP PO SCH ×4 (08:16→21:33)
[2021-09-07] MEDS: metFORMIN (GLUCOPHAGE) 500MG TAB PO SCH (08:16)
[2021-09-07] MEDS: lisinopriL 40MG TAB PO SCH (08:16)
[2021-09-07] MEDS: LACTOBACILLUS ACIDOPHILUS CAP (BACID) PO SCH ×4 (08:16→21:33)
[2021-09-07] MEDS: MULTIVITAMINS/MINERALS THERAP 1 TAB PO SCH (08:16)
[2021-09-07] MEDS: amLODIPine 5 MG TAB PO SCH (08:16)
[2021-09-07] MEDS: PANTOPRAZOLE 40MG TAB (PROTONIX) PO SCH (08:16)
[2021-09-07] MEDS: DOCUSATE SODIUM 100MG CAPSULE PO SCH ×2 (08:16→21:33)
[2021-09-07] MEDS: CO-ENZYME Q10 50 MG CAP PO SCH ×2 (08:16→21:34)
[2021-09-07] MEDS: ACETAMINOPHEN 500 MG TAB PO SCH ×3 (08:17→21:34)
[2021-09-07] MEDS: BACLOFEN 5MG PER 1/2 TABLET PO SCH ×2 (12:23→21:34)
[2021-09-07 14:00] VITALS: BP 118/63
[2021-09-07] MEDS: BISACODYL 10 MG SUPP PR SCH (16:00)
[2021-09-07] MEDS ORDERED: PROHANCE 279.3MG/ML 15ML VIAL As Ordered ONE (18:22)
[2021-09-07] MEDS ORDERED: PROHANCE 279.3MG/ML 5ML VIAL As Ordered ONE (18:22)
[2021-09-07 20:00] VITALS: BP 110/60
[2021-09-07] MEDS ORDERED: methylPREDNISolone 1,000 MG, VIAL MATE ADAPTER 1 EACH in NS 250 ML IV ONE (21:00)
[2021-09-07] MEDS: RAMELTEON 8 MG TAB (ROZEREM) PO SCH (21:33)
[2021-09-07] MEDS: SENNA 8.6 MG TAB (SENOKOT) PO SCH (21:33)
[2021-09-07] MEDS: GABAPENTIN 300 MG CAP PO SCH (21:33)
[2021-09-07] MEDS: ATORVASTATIN 20 MG TAB PO SCH (21:34)
[2021-09-07] MEDS: LEVEMIR (INSULIN DETEMIR) 1 UNITS/0.01ML SC SCH (21:34)
[2021-09-07] MEDS: LATANOPROST 0.005% OPHTH SOLN 2.5 ML OU SCH (21:34)
[2021-09-08] MEDS: REMEDY PHYTOPLEX Z-GUARD PASTE 113GM TUBE (FROM STOREROOM PRODUCT) TOP SCH ×4 (05:37→23:46)
[2021-09-08 06:00] VITALS: BP 118/82
[2021-09-08 08:22] LABS: BASO % 0.3 % (0.0-1.0); HEMATOCRIT 39.8 % (42.0-52.0); HEMOGLOBIN 13.7 g/dl (13.5-17.5); LYMPH # 1.1 10^3/uL (1.5-5.0); LYMPH % 16.6 % (24.0-44.0); MEAN CORPUSCULAR HEMOGLOBIN 31.9 pg (27.0-33.0); MEAN CORPUSCULAR HGB CONC 34.4 g/dl (32.0-36.5); MEAN CORPUSCULAR VOLUME 92.8 fl (80.0-96.0); MONO # 0.1 10^3/uL (0.0-0.8); MONO % 1.4 % (2.0-8.0); NEUTROPHILS # 5.1 10^3/uL (1.5-8.5); NEUTROPHILS % 79.7 % (36.0-66.0); PLATELET COUNT, AUTOMATED 251 10^3/uL (150-450); RED BLOOD COUNT 4.29 10^6/uL (4.30-6.10); WHITE BLOOD COUNT 6.4 10^3/uL (4.0-10.0)
[2021-09-08] MEDS: MIRALAX *UNIT DOSE* 17GM PACKET PO SCH (08:40)
[2021-09-08] MEDS: LIDOCAINE 5% (LIDODERM) PATCH TD SCH (08:41)
[2021-09-08] MEDS: ENOXAPARIN 40MG/0.4ML SYRINGE (J1650 PER 10MG) SC SCH (08:41)
[2021-09-08] MEDS: HumaLOG INSULIN (NovoLOG) PER UNIT SC SCH ×4 (08:42→20:56)
[2021-09-08] MEDS: CO-ENZYME Q10 50 MG CAP PO SCH ×2 (08:42→20:58)
[2021-09-08] MEDS: MULTIVITAMINS/MINERALS THERAP 1 TAB PO SCH (08:42)
[2021-09-08] MEDS: LACTOBACILLUS ACIDOPHILUS CAP (BACID) PO SCH ×4 (08:43→21:02)
[2021-09-08] MEDS: PANTOPRAZOLE 40MG TAB (PROTONIX) PO SCH (08:43)
[2021-09-08] MEDS: BACLOFEN 5MG PER 1/2 TABLET PO SCH ×2 (08:43→20:59)
[2021-09-08] MEDS: CEPHALEXIN 500 MG CAP PO SCH (08:43)
[2021-09-08] MEDS: DOCUSATE SODIUM 100MG CAPSULE PO SCH ×2 (08:43→20:58)
[2021-09-08] MEDS: metFORMIN (GLUCOPHAGE) 500MG TAB PO SCH (08:43)
[2021-09-08] MEDS: ACETAMINOPHEN 500 MG TAB PO SCH ×3 (08:44→21:00)
[2021-09-08 08:52] LABS: CALCIUM LEVEL 8.8 MG/DL (8.8-10.2); CREATININE FOR GFR 1.4 MG/DL (0.70-1.30); GLOMERULAR FILTRATION RATE 52.7 (>42); POTASSIUM SERUM 4.7 MEQ/L (3.5-5.1)
[2021-09-08] MEDS: lisinopriL 40MG TAB PO SCH (08:52)
[2021-09-08] MEDS: amLODIPine 5 MG TAB PO SCH (08:53)
[2021-09-08] MEDS ORDERED: LEVEMIR (INSULIN DETEMIR) 1 UNITS/0.01ML SC ONE (11:50)
[2021-09-08 14:00] VITALS: BP 126/61
[2021-09-08] MEDS: METOPROLOL TART 25 MG TABLET PO SCH ×2 (14:59→21:00)
[2021-09-08] MEDS: BISACODYL 10 MG SUPP PR SCH (16:41)
[2021-09-08] MEDS: methylPREDNISolone 1,000 MG, VIAL MATE ADAPTER 1 EACH in NS 250 ML IV SCH (18:03)
[2021-09-08 20:00] VITALS: BP 136/85
[2021-09-08] MEDS: LEVEMIR (INSULIN DETEMIR) 1 UNITS/0.01ML SC SCH (20:56)
[2021-09-08] MEDS: SENNA 8.6 MG TAB (SENOKOT) PO SCH (20:57)
[2021-09-08] MEDS: GABAPENTIN 300 MG CAP PO SCH (20:57)
[2021-09-08] MEDS: ATORVASTATIN 20 MG TAB PO SCH (20:58)
[2021-09-08] MEDS: RAMELTEON 8 MG TAB (ROZEREM) PO SCH (20:58)
[2021-09-08] MEDS ORDERED: LEVEMIR (INSULIN DETEMIR) 1 UNITS/0.01ML SC SCH (21:00)
[2021-09-08] MEDS: LATANOPROST 0.005% OPHTH SOLN 2.5 ML OU SCH (21:00)
[2021-09-09] MEDS: METOPROLOL TART 25 MG TABLET PO SCH ×3 (05:14→20:37)
[2021-09-09] MEDS: REMEDY PHYTOPLEX Z-GUARD PASTE 113GM TUBE (FROM STOREROOM PRODUCT) TOP SCH ×4 (05:18→23:37)
[2021-09-09 06:00] VITALS: BP 122/74
[2021-09-09] MEDS: CO-ENZYME Q10 50 MG CAP PO SCH ×2 (08:20→20:31)
[2021-09-09] MEDS: LACTOBACILLUS ACIDOPHILUS CAP (BACID) PO SCH ×4 (08:20→20:31)
[2021-09-09] MEDS: DOCUSATE SODIUM 100MG CAPSULE PO SCH ×2 (08:20→20:33)
[2021-09-09] MEDS: metFORMIN (GLUCOPHAGE) 500MG TAB PO SCH (08:20)
[2021-09-09] MEDS: amLODIPine 5 MG TAB PO SCH (08:21)
[2021-09-09] MEDS: PANTOPRAZOLE 40MG TAB (PROTONIX) PO SCH (08:21)
[2021-09-09] MEDS: MULTIVITAMINS/MINERALS THERAP 1 TAB PO SCH (08:21)
[2021-09-09] MEDS: lisinopriL 40MG TAB PO SCH (08:21)
[2021-09-09] MEDS: BACLOFEN 5MG PER 1/2 TABLET PO SCH ×2 (08:21→20:31)
[2021-09-09] MEDS: ACETAMINOPHEN 500 MG TAB PO SCH ×3 (08:22→20:31)
[2021-09-09] MEDS: ENOXAPARIN 40MG/0.4ML SYRINGE (J1650 PER 10MG) SC SCH (08:22)
[2021-09-09] MEDS: LEVEMIR (INSULIN DETEMIR) 1 UNITS/0.01ML SC SCH ×2 (08:22→20:32)
[2021-09-09] MEDS: HumaLOG INSULIN (NovoLOG) PER UNIT SC SCH ×4 (08:23→20:32)
[2021-09-09] MEDS: LIDOCAINE 5% (LIDODERM) PATCH TD SCH (08:23)
[2021-09-09] MEDS: MIRALAX *UNIT DOSE* 17GM PACKET PO SCH (12:15)
[2021-09-09 14:00] VITALS: BP 132/89
[2021-09-09] MEDS: BISACODYL 10 MG SUPP PR SCH (15:05)
[2021-09-09] MEDS ORDERED: methylPREDNISolone 1,000 MG, VIAL MATE ADAPTER 1 EACH in NS 250 ML IV ONE (18:00)
[2021-09-09] MEDS: methylPREDNISolone 1,000 MG, VIAL MATE ADAPTER 1 EACH in NS 250 ML IV SCH (18:07)
[2021-09-09 19:51] VITALS: BP 147/83
[2021-09-09] MEDS: GABAPENTIN 300 MG CAP PO SCH (20:31)
[2021-09-09] MEDS: RAMELTEON 8 MG TAB (ROZEREM) PO SCH (20:31)
[2021-09-09] MEDS: ATORVASTATIN 20 MG TAB PO SCH (20:31)
[2021-09-09] MEDS: SENNA 8.6 MG TAB (SENOKOT) PO SCH (20:34)
[2021-09-09] MEDS: LATANOPROST 0.005% OPHTH SOLN 2.5 ML OU SCH (20:36)
[2021-09-10] MEDS: traZODone 25MG PER 1/2 TABLET PO PRN ×2 (02:03→21:29)
[2021-09-10 05:32] VITALS: BP 129/71
[2021-09-10] MEDS: REMEDY PHYTOPLEX Z-GUARD PASTE 113GM TUBE (FROM STOREROOM PRODUCT) TOP SCH ×3 (05:49→17:38)
[2021-09-10] MEDS: METOPROLOL TART 25 MG TABLET PO SCH ×3 (05:49→21:29)
[2021-09-10] MEDS: MIRALAX *UNIT DOSE* 17GM PACKET PO SCH (09:00)
[2021-09-10] MEDS: DOCUSATE SODIUM 100MG CAPSULE PO SCH ×2 (09:00→21:00)
[2021-09-10] MEDS: HumaLOG INSULIN (NovoLOG) PER UNIT SC SCH ×4 (09:23→21:00)
[2021-09-10] MEDS: amLODIPine 5 MG TAB PO SCH (09:24)
[2021-09-10] MEDS: LEVEMIR (INSULIN DETEMIR) 1 UNITS/0.01ML SC SCH ×2 (09:24→21:30)
[2021-09-10] MEDS: ACETAMINOPHEN 500 MG TAB PO SCH ×3 (09:24→21:30)
[2021-09-10] MEDS: BACLOFEN 5MG PER 1/2 TABLET PO SCH ×2 (09:24→21:29)
[2021-09-10] MEDS: lisinopriL 40MG TAB PO SCH (09:24)
[2021-09-10] MEDS: MULTIVITAMINS/MINERALS THERAP 1 TAB PO SCH (09:24)
[2021-09-10] MEDS: PANTOPRAZOLE 40MG TAB (PROTONIX) PO SCH (09:24)
[2021-09-10] MEDS: CO-ENZYME Q10 50 MG CAP PO SCH ×2 (09:24→21:28)
[2021-09-10] MEDS: ENOXAPARIN 40MG/0.4ML SYRINGE (J1650 PER 10MG) SC SCH (09:25)
[2021-09-10] MEDS: LIDOCAINE 5% (LIDODERM) PATCH TD SCH (09:25)
[2021-09-10] MEDS: LACTOBACILLUS ACIDOPHILUS CAP (BACID) PO SCH ×4 (09:27→21:29)
[2021-09-10] MEDS: metFORMIN (GLUCOPHAGE) 500MG TAB PO SCH (09:27)
[2021-09-10 10:57] LABS: BASO % 0.2 % (0.0-1.0); HEMATOCRIT 35.6 % (42.0-52.0); HEMOGLOBIN 12.1 g/dl (13.5-17.5); LYMPH # 0.9 10^3/uL (1.5-5.0); LYMPH % 14.6 % (24.0-44.0); MEAN CORPUSCULAR HEMOGLOBIN 31.9 pg (27.0-33.0); MEAN CORPUSCULAR VOLUME 93.9 fl (80.0-96.0); MONO # 0.2 10^3/uL (0.0-0.8); MONO % 3.6 % (2.0-8.0); NEUTROPHILS # 4.5 10^3/uL (1.5-8.5); NEUTROPHILS % 77.5 % (36.0-66.0); PLATELET COUNT, AUTOMATED 191 10^3/uL (150-450); RED BLOOD COUNT 3.79 10^6/uL (4.30-6.10); WHITE BLOOD COUNT 5.8 10^3/uL (4.0-10.0)
[2021-09-10 11:26] LABS: CALCIUM LEVEL 8.2 MG/DL (8.8-10.2); CREATININE FOR GFR 1.31 MG/DL (0.70-1.30); GLOMERULAR FILTRATION RATE 56.9 (>42); POTASSIUM SERUM 4.3 MEQ/L (3.5-5.1)
[2021-09-10 14:00] VITALS: BP 141/82
[2021-09-10] MEDS: BISACODYL 10 MG SUPP PR SCH (16:00)
[2021-09-10 20:00] VITALS: BP 134/72
[2021-09-10] MEDS: SENNA 8.6 MG TAB (SENOKOT) PO SCH (21:00)
[2021-09-10] MEDS: GABAPENTIN 300 MG CAP PO SCH (21:29)
[2021-09-10] MEDS: RAMELTEON 8 MG TAB (ROZEREM) PO SCH (21:29)
[2021-09-10] MEDS: ATORVASTATIN 20 MG TAB PO SCH (21:30)
[2021-09-10] MEDS: LATANOPROST 0.005% OPHTH SOLN 2.5 ML OU SCH (21:31)
[2021-09-11] MEDS: METOPROLOL TART 25 MG TABLET PO SCH ×4 (05:22→21:28)
[2021-09-11] MEDS: REMEDY PHYTOPLEX Z-GUARD PASTE 113GM TUBE (FROM STOREROOM PRODUCT) TOP SCH ×5 (05:23→21:30)
[2021-09-11 06:00] VITALS: BP 142/98
[2021-09-11] MEDS: HumaLOG INSULIN (NovoLOG) PER UNIT SC SCH ×4 (07:30→21:00)
[2021-09-11] MEDS: LACTOBACILLUS ACIDOPHILUS CAP (BACID) PO SCH ×4 (09:11→21:27)
[2021-09-11] MEDS: DOCUSATE SODIUM 100MG CAPSULE PO SCH ×2 (09:12→21:00)
[2021-09-11] MEDS: CO-ENZYME Q10 50 MG CAP PO SCH ×2 (09:12→21:27)
[2021-09-11] MEDS: BACLOFEN 5MG PER 1/2 TABLET PO SCH ×2 (09:13→21:27)
[2021-09-11] MEDS: MULTIVITAMINS/MINERALS THERAP 1 TAB PO SCH (09:13)
[2021-09-11] MEDS: amLODIPine 5 MG TAB PO SCH (09:13)
[2021-09-11] MEDS: lisinopriL 40MG TAB PO SCH (09:13)
[2021-09-11] MEDS: ACETAMINOPHEN 500 MG TAB PO SCH ×3 (09:14→21:28)
[2021-09-11] MEDS: ENOXAPARIN 40MG/0.4ML SYRINGE (J1650 PER 10MG) SC SCH (09:14)
[2021-09-11] MEDS: LIDOCAINE 5% (LIDODERM) PATCH TD SCH (09:14)
[2021-09-11] MEDS: metFORMIN (GLUCOPHAGE) 500MG TAB PO SCH (09:15)
[2021-09-11] MEDS: predniSONE 20 MG TAB PO SCH (09:17)
[2021-09-11] MEDS: PANTOPRAZOLE 40MG TAB (PROTONIX) PO SCH (09:17)
[2021-09-11 14:00] VITALS: BP 131/62
[2021-09-11] MEDS: MIRALAX *UNIT DOSE* 17GM PACKET PO SCH (14:44)
[2021-09-11] MEDS: BISACODYL 10 MG SUPP PR SCH (16:00)
[2021-09-11 20:00] VITALS: BP 124/73
[2021-09-11] MEDS: SENNA 8.6 MG TAB (SENOKOT) PO SCH (21:00)
[2021-09-11] MEDS: traZODone 25MG PER 1/2 TABLET PO PRN (21:27)
[2021-09-11] MEDS: RAMELTEON 8 MG TAB (ROZEREM) PO SCH (21:27)
[2021-09-11] MEDS: LATANOPROST 0.005% OPHTH SOLN 2.5 ML OU SCH (21:27)
[2021-09-11] MEDS: GABAPENTIN 300 MG CAP PO SCH (21:28)
[2021-09-11] MEDS: ATORVASTATIN 20 MG TAB PO SCH (21:28)
[2021-09-11] MEDS: LEVEMIR (INSULIN DETEMIR) 1 UNITS/0.01ML SC SCH (21:29)
[2021-09-12] MEDS: METOPROLOL TART 25 MG TABLET PO SCH ×3 (05:08→21:31)
[2021-09-12] MEDS: REMEDY PHYTOPLEX Z-GUARD PASTE 113GM TUBE (FROM STOREROOM PRODUCT) TOP SCH ×4 (05:08→20:50)
[2021-09-12 06:00] VITALS: BP 147/81
[2021-09-12] MEDS: HumaLOG INSULIN (NovoLOG) PER UNIT SC SCH ×4 (07:59→20:41)
[2021-09-12] MEDS: metFORMIN (GLUCOPHAGE) 500MG TAB PO SCH (07:59)
[2021-09-12] MEDS: LACTOBACILLUS ACIDOPHILUS CAP (BACID) PO SCH ×4 (08:00→20:48)
[2021-09-12] MEDS: DOCUSATE SODIUM 100MG CAPSULE PO SCH ×2 (10:03→20:40)
[2021-09-12] MEDS: CO-ENZYME Q10 50 MG CAP PO SCH ×2 (10:03→20:48)
[2021-09-12] MEDS: predniSONE 20 MG TAB PO SCH (10:03)
[2021-09-12] MEDS: lisinopriL 40MG TAB PO SCH (10:04)
[2021-09-12] MEDS: MULTIVITAMINS/MINERALS THERAP 1 TAB PO SCH (10:05)
[2021-09-12] MEDS: PANTOPRAZOLE 40MG TAB (PROTONIX) PO SCH (10:05)
[2021-09-12] MEDS: ACETAMINOPHEN 500 MG TAB PO SCH ×3 (10:05→20:49)
[2021-09-12] MEDS: BACLOFEN 5MG PER 1/2 TABLET PO SCH ×2 (10:06→20:49)
[2021-09-12] MEDS: LIDOCAINE 5% (LIDODERM) PATCH TD SCH (10:06)
[2021-09-12] MEDS: amLODIPine 5 MG TAB PO SCH (10:06)
[2021-09-12] MEDS: ENOXAPARIN 40MG/0.4ML SYRINGE (J1650 PER 10MG) SC SCH (10:06)
[2021-09-12 14:00] VITALS: BP 143/80
[2021-09-12] MEDS: MIRALAX *UNIT DOSE* 17GM PACKET PO SCH (14:53)
[2021-09-12] MEDS: BISACODYL 10 MG SUPP PR SCH (15:54)
[2021-09-12 19:30] VITALS: BP 112/68
[2021-09-12] MEDS: SENNA 8.6 MG TAB (SENOKOT) PO SCH (20:41)
[2021-09-12] MEDS: RAMELTEON 8 MG TAB (ROZEREM) PO SCH (20:48)
[2021-09-12] MEDS: GABAPENTIN 300 MG CAP PO SCH (20:48)
[2021-09-12] MEDS: ATORVASTATIN 20 MG TAB PO SCH (20:49)
[2021-09-12] MEDS: traZODone 25MG PER 1/2 TABLET PO PRN (20:49)
[2021-09-12] MEDS: LEVEMIR (INSULIN DETEMIR) 1 UNITS/0.01ML SC SCH (20:49)
[2021-09-12] MEDS: LATANOPROST 0.005% OPHTH SOLN 2.5 ML OU SCH (20:50)
[2021-09-13] MEDS: REMEDY PHYTOPLEX Z-GUARD PASTE 113GM TUBE (FROM STOREROOM PRODUCT) TOP SCH ×4 (05:50→22:59)
[2021-09-13] MEDS: METOPROLOL TART 25 MG TABLET PO SCH ×3 (05:50→21:33)
[2021-09-13 06:00] VITALS: BP 150/92
[2021-09-13 06:34] LABS: BASO % 0.3 % (0.0-1.0); EOS % 0.5 % (0.0-3.0); HEMATOCRIT 36.9 % (42.0-52.0); HEMOGLOBIN 12.7 g/dl (13.5-17.5); LYMPH # 2.7 10^3/uL (1.5-5.0); LYMPH % 37.1 % (24.0-44.0); MEAN CORPUSCULAR HEMOGLOBIN 32.2 pg (27.0-33.0); MEAN CORPUSCULAR HGB CONC 34.4 g/dl (32.0-36.5); MEAN CORPUSCULAR VOLUME 93.4 fl (80.0-96.0); MONO # 0.8 10^3/uL (0.0-0.8); MONO % 11.3 % (2.0-8.0); NEUTROPHILS # 3.6 10^3/uL (1.5-8.5); NEUTROPHILS % 48.8 % (36.0-66.0); PLATELET COUNT, AUTOMATED 152 10^3/uL (150-450); RED BLOOD COUNT 3.95 10^6/uL (4.30-6.10); WHITE BLOOD COUNT 7.4 10^3/uL (4.0-10.0)
[2021-09-13 06:59] LABS: BLOOD UREA NITROGEN 32 MG/DL (7-18); CALCIUM LEVEL 8.4 MG/DL (8.8-10.2); CARBON DIOXIDE LEVEL 29 MEQ/L (21-32); CHLORIDE LEVEL 105 MEQ/L (98-107); CREATININE FOR GFR 1.06 MG/DL (0.70-1.30); GLOMERULAR FILTRATION RATE > 60.0 (>42); GLUCOSE, FASTING 117 MG/DL (70-100); POTASSIUM SERUM 3.8 MEQ/L (3.5-5.1); SODIUM LEVEL 137 MEQ/L (136-145)
[2021-09-13] MEDS: HumaLOG INSULIN (NovoLOG) PER UNIT SC SCH ×4 (07:50→19:40)
[2021-09-13] MEDS: metFORMIN (GLUCOPHAGE) 500MG TAB PO SCH (07:51)
[2021-09-13] MEDS: LACTOBACILLUS ACIDOPHILUS CAP (BACID) PO SCH ×4 (07:51→21:33)
[2021-09-13 08:00] VITALS: BP 150/92
[2021-09-13] MEDS: MIRALAX *UNIT DOSE* 17GM PACKET PO SCH (08:34)
[2021-09-13] MEDS: BACLOFEN 5MG PER 1/2 TABLET PO SCH ×2 (08:35→21:33)
[2021-09-13] MEDS: CO-ENZYME Q10 50 MG CAP PO SCH ×2 (08:35→21:34)
[2021-09-13] MEDS: ENOXAPARIN 40MG/0.4ML SYRINGE (J1650 PER 10MG) SC SCH (08:36)
[2021-09-13] MEDS: LIDOCAINE 5% (LIDODERM) PATCH TD SCH (08:36)
[2021-09-13] MEDS: PANTOPRAZOLE 40MG TAB (PROTONIX) PO SCH (08:36)
[2021-09-13] MEDS: MULTIVITAMINS/MINERALS THERAP 1 TAB PO SCH (08:36)
[2021-09-13] MEDS: DOCUSATE SODIUM 100MG CAPSULE PO SCH ×2 (08:37→21:33)
[2021-09-13] MEDS: predniSONE 20 MG TAB PO SCH (08:37)
[2021-09-13] MEDS: ACETAMINOPHEN 500 MG TAB PO SCH ×3 (08:38→21:32)
[2021-09-13] MEDS: lisinopriL 40MG TAB PO SCH (08:38)
[2021-09-13] MEDS: amLODIPine 5 MG TAB PO SCH (08:38)
[2021-09-13 13:56] VITALS: BP 130/64
[2021-09-13 14:00] VITALS: BP 118/70
[2021-09-13] MEDS: BISACODYL 10 MG SUPP PR SCH (16:02)
[2021-09-13 19:33] VITALS: BP 113/66
[2021-09-13] MEDS: LATANOPROST 0.005% OPHTH SOLN 2.5 ML OU SCH (21:32)
[2021-09-13] MEDS: ATORVASTATIN 20 MG TAB PO SCH (21:32)
[2021-09-13] MEDS: SENNA 8.6 MG TAB (SENOKOT) PO SCH (21:33)
[2021-09-13] MEDS: GABAPENTIN 300 MG CAP PO SCH (21:33)
[2021-09-13] MEDS: RAMELTEON 8 MG TAB (ROZEREM) PO SCH (21:33)
[2021-09-13] MEDS: traZODone 25MG PER 1/2 TABLET PO PRN (21:33)
[2021-09-13] MEDS: LEVEMIR (INSULIN DETEMIR) 1 UNITS/0.01ML SC SCH (21:34)
[2021-09-14] MEDS: REMEDY PHYTOPLEX Z-GUARD PASTE 113GM TUBE (FROM STOREROOM PRODUCT) TOP SCH ×2 (05:12→12:00)
[2021-09-14 06:09] VITALS: BP 157/94
[2021-09-14] MEDS: HumaLOG INSULIN (NovoLOG) PER UNIT SC SCH ×2 (06:49→12:00)
[2021-09-14] MEDS: LIDOCAINE 5% (LIDODERM) PATCH TD SCH (06:50)
[2021-09-14] MEDS: LACTOBACILLUS ACIDOPHILUS CAP (BACID) PO SCH (06:55)
[2021-09-14] MEDS: ENOXAPARIN 40MG/0.4ML SYRINGE (J1650 PER 10MG) SC SCH (06:55)
[2021-09-14] MEDS: lisinopriL 40MG TAB PO SCH (06:55)
[2021-09-14] MEDS: CO-ENZYME Q10 50 MG CAP PO SCH (06:55)
[2021-09-14] MEDS: PANTOPRAZOLE 40MG TAB (PROTONIX) PO SCH (06:55)
[2021-09-14] MEDS: metFORMIN (GLUCOPHAGE) 500MG TAB PO SCH (06:56)
[2021-09-14] MEDS: METOPROLOL TART 25 MG TABLET PO SCH (06:56)
[2021-09-14] MEDS: MULTIVITAMINS/MINERALS THERAP 1 TAB PO SCH (06:56)
[2021-09-14] MEDS: amLODIPine 5 MG TAB PO SCH (06:56)
[2021-09-14] MEDS: DOCUSATE SODIUM 100MG CAPSULE PO SCH (06:57)
[2021-09-14] MEDS: ACETAMINOPHEN 500 MG TAB PO SCH (06:57)
[2021-09-14] MEDS: BACLOFEN 5MG PER 1/2 TABLET PO SCH (06:57)
[2021-09-14] MEDS ORDERED: predniSONE 10 MG TAB PO SCH (09:00)
[2021-09-14] MEDS ORDERED: MIRALAX *UNIT DOSE* 17GM PACKET PO SCH (14:00)
[2021-09-14] MEDS ORDERED: BACL10TA2 PO (14:31)
[2021-09-14] MEDS ORDERED: LOVE1INJ SC (14:31)
[2021-09-14] MEDS ORDERED: ACET-683 PO (14:31)
[2021-09-14] MEDS ORDERED: ATOR1TAB21 PO (14:31)
[2021-09-14] MEDS ORDERED: AMLO1TAB24 PO (14:31)
[2021-09-14] MEDS ORDERED: COLA100C5 PO (14:31)
[2021-09-14] MEDS ORDERED: INSUDET SC (14:31)
[2021-09-14] MEDS ORDERED: BISA10SU PR (14:31)
[2021-09-14] MEDS ORDERED: GABA-282 PO (14:31)
[2021-09-14] MEDS ORDERED: HYDR-3490 PO (14:31)
[2021-09-14] MEDS ORDERED: MIRA1POW3 PO (14:32)
[2021-09-14] MEDS ORDERED: RISATAB3 PO (14:32)
[2021-09-14] MEDS ORDERED: COEN50CA PO (14:32)
[2021-09-14] MEDS ORDERED: METF500T13 PO (14:32)
[2021-09-14] MEDS ORDERED: LISI40TA4 PO (14:32)
[2021-09-14] MEDS ORDERED: OXYC-517 PO (14:32)
[2021-09-14] MEDS ORDERED: PANT40TA29 PO (14:32)
[2021-09-14] MEDS ORDERED: PRED10TA2 PO (14:32)
[2021-09-14] MEDS ORDERED: Latanoprost 0.005% Op Soln OU (14:32)
[2021-09-14] MEDS ORDERED: SENN18TA PO (14:32)
[2021-09-14] MEDS ORDERED: LIDO5TD TD (14:32)
[2021-09-14] MEDS ORDERED: RAME8TAB2 PO (14:32)
[2021-09-14] MEDS ORDERED: TRAZ-252 PO (14:32)
[2021-09-14] MEDS ORDERED: Zinc Oxide/Petrolatum,White TOP (14:32)
[2021-09-14] MEDS ORDERED: VITMTA PO (14:32)
[2021-09-14] MEDS ORDERED: INSUHUMDS SC ×2 (14:32)
[2021-09-14] MEDS ORDERED: METO1TAB87 PO (14:32)
[2021-09-17] MEDS ORDERED: predniSONE 5 MG TAB PO SCH (09:00)
== END 2021-09-14 09:55 | disposition short-term general hospital (02) | DRG 91 ==
LOC: M PM&R 13:45
PROVIDERS: ADMIT Physical Medicine & Rehabilitation; ATTEND Physical Medicine & Rehabilitation
DX: G95.89 Other specified diseases of spinal cord (principal); G82.50 Quadriplegia, unspecified; M50.00 Cervical disc disorder with myelopathy, unspecified cervical region; I10 Essential (primary) hypertension; E66.9 Obesity, unspecified; E78.5 Hyperlipidemia, unspecified; F10.10 Alcohol abuse, uncomplicated; Z74.09 Other reduced mobility; Z74.1 Need for assistance with personal care; Z79.4 Long term (current) use of insulin; Z79.899 Other long term (current) drug therapy; Z68.32 Body mass index [BMI] 32.0-32.9, adult; G47.00 Insomnia, unspecified; K21.9 Gastro-esophageal reflux disease without esophagitis

== ENCOUNTER 2021-10-06 14:44 | Inpatient (IN) | payer OTHER, MEDICARE ==
[~2021-10-06] VITALS: Ht 185.4 cm; Wt 110.9 kg
[~2021-10-06 14:44] MED LIST changes: +ACET-683 PO; +ACET1TAB55 PO; +AMLO1TAB24 PO; +ATOR1TAB21 PO; +BACL10TA2 PO; +BIMA01SOL OU; +BISA10SU PR; +BISA10SU4 PR; +CENT1TAB PO; +COEN100T PO; +COEN50CA PO; +COLA100C5 PO; +DOCU100C16 PO; +ENEMENE PR; +GABA-282 PO; +HUMA100I5 SC; +HYDR-3490 PO; +INSUDET SC; +INSUHUMDS SC; +KETO2SHA8 TOP; +LANTINJ4 SC; +LATA0.0015 OU; +LIDO5TD TD; +LISI40TA4 PO; +LOVE1INJ SC; +LUTE20CA7 PO; +Latanoprost 0.005% Op Soln OU; +METF-838 PO; +METF500T13 PO; +METO1TAB87 PO; +MILKSUS3 PO; +MIRA1POW3 PO; +MIRA3350 PO; +OXYC-517 PO; +PANT40TA29 PO; +PRED10TA2 PO; +RAME8TAB2 PO; +RISATAB3 PO; +SENN-80 PO; +SENN18TA PO; +TRAZ-252 PO; +VITMTA PO; +Zinc Oxide/Petrolatum,White TOP
[2021-10-06] MEDS ORDERED: LIDOCAINE 1% MDV 20ML VIAL As Ordered ONE (15:36)
[2021-10-06] MEDS ORDERED: SODIUM CHLORIDE 0.9% INJ 10 ML SYR IV PRN (16:20)
[2021-10-06 17:57] LABS: HEMATOCRIT 33.7 % (42.0-52.0); MEAN CORPUSCULAR HEMOGLOBIN 32.4 pg (27.0-33.0); MEAN CORPUSCULAR HGB CONC 32.6 g/dl (32.0-36.5); MEAN CORPUSCULAR VOLUME 99.1 fl (80.0-96.0); PLATELET COUNT, AUTOMATED 167 10^3/uL (150-450); WHITE BLOOD COUNT 9.3 10^3/uL (4.0-10.0)
[2021-10-06] MEDS ORDERED: SODIUM CHLORIDE 0.9% INJ 10 ML SYR IV SCH (18:00)
[2021-10-06 18:26] LABS: LYMPHOCYTES 10 % (16-44); METAMYELOCYTES 1 % (0-0); MONOCYTES 3 % (0-5); NEUTROPHILS 83 % (28-66); PLATELET ESTIMATE NORMAL (NORMAL)
[2021-10-06 18:30] LABS: ALBUMIN 4.1 GM/DL (3.2-5.2); ALT/SGPT 63 U/L (12-78); BILIRUBIN,TOTAL 0.6 MG/DL (0.2-1.0); BLOOD UREA NITROGEN 27 MG/DL (7-18); CALCIUM LEVEL 9.2 MG/DL (8.8-10.2); CARBON DIOXIDE LEVEL 26 MEQ/L (21-32); CHLORIDE LEVEL 101 MEQ/L (98-107); CREATININE FOR GFR 1.16 MG/DL (0.70-1.30); GLOMERULAR FILTRATION RATE > 60.0 (>42); GLUCOSE, FASTING 329 MG/DL (70-100); POTASSIUM SERUM 4.4 MEQ/L (3.5-5.1); SODIUM LEVEL 136 MEQ/L (136-145); TOTAL PROTEIN 6.2 GM/DL (6.4-8.2)
[2021-10-06 18:38] LABS: RSV AMPLIFICATION NEGATIVE (NEGATIVE)
[2021-10-06] MEDS ORDERED: VANCOMYCIN HCL 2,000 MG in D5W 500 ML IV ONE (18:40)
[2021-10-06] MEDS ORDERED: VANCOMYCIN HCL 1,000 MG, VIAL MATE ADAPTER 1 EACH in NS 250 ML IV ONE ×2 (19:00→20:00)
[2021-10-06] MEDS ORDERED: GABA-282 PO (20:03)
[2021-10-06] MEDS ORDERED: BACL10TA2 PO (20:03)
[2021-10-06] MEDS ORDERED: CYCL5TAB PO (20:03)
[2021-10-06] MEDS ORDERED: BACITAB PO (20:03)
[2021-10-06] MEDS ORDERED: LISI40TA4 PO (20:03)
[2021-10-06] MEDS ORDERED: INSULANT SC (20:03)
[2021-10-06] MEDS ORDERED: VITA400C53 PO (20:03)
[2021-10-06] MEDS ORDERED: AMLO1TAB24 PO (20:03)
[2021-10-06] MEDS ORDERED: ACET500T15 PO (20:03)
[2021-10-06] MEDS ORDERED: BACT800T5 PO (20:03)
[2021-10-06] MEDS ORDERED: DICL20GE TOP (20:03)
[2021-10-06] MEDS ORDERED: DEXT4TAB15 PO (20:03)
[2021-10-06] MEDS ORDERED: OYST500T11 PO (20:03)
[2021-10-06] MEDS ORDERED: BISA10SU27 PR (20:03)
[2021-10-06] MEDS ORDERED: COEN100T PO (20:03)
[2021-10-06] MEDS ORDERED: MELA10CA2 PO (20:03)
[2021-10-06] MEDS ORDERED: HYDR-3490 PO (20:03)
[2021-10-06] MEDS ORDERED: ATOR40TA75 PO (20:03)
[2021-10-06] MEDS ORDERED: DOCU100C16 PO (20:03)
[2021-10-06] MEDS ORDERED: PRED10PA2 PO (20:03)
[2021-10-06] MEDS ORDERED: ENOX40IN3 SC (20:03)
[2021-10-06] MEDS ORDERED: GLUC1KIT IM (20:03)
[2021-10-06] MEDS ORDERED: TRAZ-186 PO (20:12)
[2021-10-06] MEDS ORDERED: XALA0.007 OU (20:12)
[2021-10-06] MEDS ORDERED: SENN-80 PO (20:12)
[2021-10-06] MEDS ORDERED: PANT40TA29 PO (20:12)
[2021-10-06] MEDS ORDERED: MIRA3350 PO (20:12)
[2021-10-06] MEDS ORDERED: VITMTA PO (20:12)
[2021-10-06] MEDS ORDERED: ROZE8TAB16 PO (20:12)
[2021-10-06] MEDS ORDERED: LIDO1PAD TOP (20:19)
[2021-10-06] MEDS ORDERED: INSUHUMDS SC (20:19)
[2021-10-06] MEDS ORDERED: HOME MED LIST COMPLETE! XX SCH (20:20)
[2021-10-06] MEDS: **NOTE PATIENT COMMENT** MISC XX SCH (21:00)
[2021-10-06] MEDS ORDERED: BISACODYL 10 MG SUPP PR PRN (21:25)
[2021-10-06] MEDS ORDERED: SENNA 8.6 MG TAB (SENOKOT) PO PRN (21:25)
[2021-10-06] MEDS ORDERED: GLUCOSE 4GM CHEW TABLET PO PRN ×2 (21:25→21:45)
[2021-10-06] MEDS ORDERED: LEVEMIR (INSULIN DETEMIR) 1 UNITS/0.01ML SC SCH (21:35)
[2021-10-06] MEDS ORDERED: DEXTROSE 50% 50 ML SYRINGE IV PRN (21:45)
[2021-10-06] MEDS ORDERED: GLUCAGON INJ 1MG VIAL SC PRN (21:45)
[2021-10-06] MEDS: HumaLOG INSULIN (NovoLOG) PER UNIT SC SCH (22:47)
[2021-10-06] MEDS: GABAPENTIN 300 MG CAP PO SCH (22:48)
[2021-10-06] MEDS: CYCLOBENZAPRINE 5MG TABLET PO PRN (22:48)
[2021-10-06] MEDS: LATANOPROST 0.005% OPHTH SOLN 2.5 ML OU SCH (22:54)
[2021-10-07 00:02] VITALS: BP 153/76
[2021-10-07] MEDS: RAMELTEON 8 MG TAB (ROZEREM) PO SCH ×2 (01:32→21:48)
[2021-10-07] MEDS: CO-ENZYME Q10 50 MG CAP PO SCH ×3 (01:33→21:48)
[2021-10-07] MEDS: BACLOFEN 5MG PER 1/2 TABLET PO SCH ×3 (01:33→21:48)
[2021-10-07 06:00] VITALS: BP 149/81
[2021-10-07] MEDS ORDERED: VANCOMYCIN HCL 1,000 MG, VIAL MATE ADAPTER 1 EACH in NS 250 ML IV SCH (08:00)
[2021-10-07 08:30] VITALS: BP 164/83
[2021-10-07] MEDS: DOCUSATE SODIUM 100MG CAPSULE PO SCH ×2 (08:43→21:48)
[2021-10-07] MEDS: MULTIVITAMINS/MINERALS THERAP 1 TAB PO SCH (08:44)
[2021-10-07] MEDS: LACTOBACILLUS ACIDOPHILUS CAP (BACID) PO SCH (08:44)
[2021-10-07] MEDS: PANTOPRAZOLE 40MG TAB (PROTONIX) PO SCH (08:44)
[2021-10-07] MEDS: amLODIPine 5 MG TAB PO SCH (08:44)
[2021-10-07] MEDS: MIRALAX *UNIT DOSE* 17GM PACKET PO SCH (08:44)
[2021-10-07] MEDS: CALCIUM/VITAMIN D 500 MG TAB PO SCH (08:44)
[2021-10-07] MEDS: ATORVASTATIN 20 MG TAB PO SCH (08:44)
[2021-10-07] MEDS: ENOXAPARIN 40MG/0.4ML SYRINGE (J1650 PER 10MG) SC SCH (08:44)
[2021-10-07] MEDS: lisinopriL 40MG TAB PO SCH (08:44)
[2021-10-07] MEDS: HumaLOG INSULIN (NovoLOG) PER UNIT SC SCH ×4 (08:45→20:59)
[2021-10-07] MEDS: LIDOCAINE 5% (LIDODERM) PATCH TOP SCH (08:47)
[2021-10-07 12:00] LABS: BASO # 0.1 10^3/uL (0.0-0.2); BASO % 0.6 % (0.0-1.0); EOS % 0.2 % (0.0-3.0); HEMATOCRIT 33.7 % (42.0-52.0); HEMOGLOBIN 11.3 g/dl (13.5-17.5); LYMPH # 2.9 10^3/uL (1.5-5.0); LYMPH % 34.1 % (24.0-44.0); MEAN CORPUSCULAR HEMOGLOBIN 32.5 pg (27.0-33.0); MEAN CORPUSCULAR HGB CONC 33.5 g/dl (32.0-36.5); MEAN CORPUSCULAR VOLUME 96.8 fl (80.0-96.0); MONO # 1.2 10^3/uL (0.0-0.8); MONO % 14.7 % (2.0-8.0); NEUTROPHILS # 3.9 10^3/uL (1.5-8.5); NEUTROPHILS % 46.1 % (36.0-66.0); PLATELET COUNT, AUTOMATED 165 10^3/uL (150-450); RED BLOOD COUNT 3.48 10^6/uL (4.30-6.10); WHITE BLOOD COUNT 8.4 10^3/uL (4.0-10.0)
[2021-10-07] MEDS: VANCOMYCIN HCL 1,000 MG, VIAL MATE ADAPTER 1 EACH in NS 250 ML IV SCH ×2 (13:19→14:40)
[2021-10-07 13:39] LABS: BLOOD UREA NITROGEN 27 MG/DL (7-18); CALCIUM LEVEL 9.5 MG/DL (8.8-10.2); CARBON DIOXIDE LEVEL 28 MEQ/L (21-32); CHLORIDE LEVEL 103 MEQ/L (98-107); GLOMERULAR FILTRATION RATE > 60.0 (>42); GLUCOSE, FASTING 133 MG/DL (70-100); POTASSIUM SERUM 3.9 MEQ/L (3.5-5.1); SODIUM LEVEL 140 MEQ/L (136-145)
[2021-10-07 14:00] VITALS: BP 145/81
[2021-10-07 18:30] VITALS: BP 143/75
[2021-10-07] MEDS ORDERED: predniSONE 50 MG TAB PO ONE (20:00)
[2021-10-07] MEDS ORDERED: LEVEMIR (INSULIN DETEMIR) 1 UNITS/0.01ML SC SCH (21:00)
[2021-10-07] MEDS: GABAPENTIN 300 MG CAP PO SCH (21:48)
[2021-10-07] MEDS: LATANOPROST 0.005% OPHTH SOLN 2.5 ML OU SCH (21:49)
[2021-10-07] MEDS: **NOTE PATIENT COMMENT** MISC XX SCH (21:50)
[2021-10-08] MEDS ORDERED: HumaLOG INSULIN (NovoLOG) PER UNIT SC ONE (03:35)
[2021-10-08 05:31] VITALS: BP 130/90
[2021-10-08 07:09] LABS: HEMATOCRIT 34.5 % (42.0-52.0); HEMOGLOBIN 11.5 g/dl (13.5-17.5); MEAN CORPUSCULAR HEMOGLOBIN 31.9 pg (27.0-33.0); MEAN CORPUSCULAR HGB CONC 33.3 g/dl (32.0-36.5); MEAN CORPUSCULAR VOLUME 95.8 fl (80.0-96.0); PLATELET COUNT, AUTOMATED 159 10^3/uL (150-450); WHITE BLOOD COUNT 7.7 10^3/uL (4.0-10.0)
[2021-10-08 07:36] LABS: ATYPICAL LYMPH 2 % (0-5); LYMPHOCYTES 7 % (16-44); METAMYELOCYTES 1 % (0-0); MONOCYTES 3 % (0-5); MYELOCYTES 1 % (0-0); NEUTROPHILS 85 % (28-66); TEAR DROP CELLS 2+
[2021-10-08 07:37] LABS: PLATELET ESTIMATE NORMAL (NORMAL)
[2021-10-08 07:47] LABS: BLOOD UREA NITROGEN 28 MG/DL (7-18); CREATININE FOR GFR 1.03 MG/DL (0.70-1.30); GLOMERULAR FILTRATION RATE > 60.0 (>42); GLUCOSE, FASTING 267 MG/DL (70-100); SODIUM LEVEL 136 MEQ/L (136-145)
[2021-10-08 07:48] LABS: CALCIUM LEVEL 9.3 MG/DL (8.8-10.2); CARBON DIOXIDE LEVEL 24 mmol/L (20-29); CHLORIDE LEVEL 103 MEQ/L (98-107); POTASSIUM SERUM 5.5 MEQ/L (3.5-5.1)
[2021-10-08] MEDS: VANCOMYCIN HCL 1,000 MG, VIAL MATE ADAPTER 1 EACH in NS 250 ML IV SCH ×2 (08:19→09:29)
[2021-10-08] MEDS: HumaLOG INSULIN (NovoLOG) PER UNIT SC SCH ×4 (08:19→22:07)
[2021-10-08] MEDS: LIDOCAINE 5% (LIDODERM) PATCH TOP SCH (09:00)
[2021-10-08] MEDS: MIRALAX *UNIT DOSE* 17GM PACKET PO SCH (09:30)
[2021-10-08] MEDS: LACTOBACILLUS ACIDOPHILUS CAP (BACID) PO SCH (09:30)
[2021-10-08] MEDS: BACLOFEN 5MG PER 1/2 TABLET PO SCH ×2 (09:30→22:08)
[2021-10-08] MEDS: ENOXAPARIN 40MG/0.4ML SYRINGE (J1650 PER 10MG) SC SCH (09:30)
[2021-10-08] MEDS: CO-ENZYME Q10 50 MG CAP PO SCH ×2 (09:30→22:07)
[2021-10-08] MEDS: ATORVASTATIN 20 MG TAB PO SCH (09:31)
[2021-10-08] MEDS: PANTOPRAZOLE 40MG TAB (PROTONIX) PO SCH (09:31)
[2021-10-08] MEDS: BACTRIM 160MG/800MG DS TAB PO SCH (09:31)
[2021-10-08] MEDS: DOCUSATE SODIUM 100MG CAPSULE PO SCH ×2 (09:31→22:07)
[2021-10-08] MEDS: CALCIUM/VITAMIN D 500 MG TAB PO SCH (09:32)
[2021-10-08] MEDS: predniSONE 20 MG TAB PO SCH (09:32)
[2021-10-08] MEDS: MULTIVITAMINS/MINERALS THERAP 1 TAB PO SCH (09:35)
[2021-10-08] MEDS: amLODIPine 5 MG TAB PO SCH (09:40)
[2021-10-08] MEDS: lisinopriL 40MG TAB PO SCH (09:40)
[2021-10-08 14:00] VITALS: BP 149/84
[2021-10-08 18:00] VITALS: BP 151/82
[2021-10-08] MEDS ORDERED: predniSONE 20 MG TAB PO ONE (20:00)
[2021-10-08] MEDS: **NOTE PATIENT COMMENT** MISC XX SCH (21:00)
[2021-10-08] MEDS: LEVEMIR (INSULIN DETEMIR) 1 UNITS/0.01ML SC SCH (22:06)
[2021-10-08] MEDS: GABAPENTIN 300 MG CAP PO SCH (22:07)
[2021-10-08] MEDS: RAMELTEON 8 MG TAB (ROZEREM) PO SCH (22:07)
[2021-10-08] MEDS: LATANOPROST 0.005% OPHTH SOLN 2.5 ML OU SCH (22:08)
[2021-10-08] MEDS: CYCLOBENZAPRINE 5MG TABLET PO PRN (22:17)
[2021-10-09] MEDS: VANCOMYCIN HCL 1,000 MG, VIAL MATE ADAPTER 1 EACH in NS 250 ML IV SCH ×4 (01:58→22:14)
[2021-10-09] MEDS: traZODone 25MG PER 1/2 TABLET PO PRN ×2 (01:59→20:16)
[2021-10-09] MEDS ORDERED: SODIUM CHLORIDE 0.9% INJ 10 ML SYR IV PRN (02:05)
[2021-10-09] MEDS: SODIUM CHLORIDE 0.9% INJ 10 ML SYR IV SCH ×2 (05:29→17:56)
[2021-10-09 06:00] VITALS: BP 147/82
[2021-10-09 06:53] LABS: BASO % 0.4 % (0.0-1.0); EOS % 0.2 % (0.0-3.0); HEMATOCRIT 32.1 % (42.0-52.0); HEMOGLOBIN 10.8 g/dl (13.5-17.5); LYMPH % 22.5 % (24.0-44.0); MEAN CORPUSCULAR HEMOGLOBIN 32.3 pg (27.0-33.0); MEAN CORPUSCULAR HGB CONC 33.6 g/dl (32.0-36.5); MEAN CORPUSCULAR VOLUME 96.1 fl (80.0-96.0); MONO # 1.3 10^3/uL (0.0-0.8); MONO % 14.2 % (2.0-8.0); NEUTROPHILS # 5.4 10^3/uL (1.5-8.5); NEUTROPHILS % 59.4 % (36.0-66.0); PLATELET COUNT, AUTOMATED 147 10^3/uL (150-450); RED BLOOD COUNT 3.34 10^6/uL (4.30-6.10)
[2021-10-09 07:15] LABS: BLOOD UREA NITROGEN 27 MG/DL (7-18); CALCIUM LEVEL 8.8 MG/DL (8.8-10.2); CARBON DIOXIDE LEVEL 26 MEQ/L (21-32); CHLORIDE LEVEL 105 MEQ/L (98-107); CREATININE FOR GFR 1.03 MG/DL (0.70-1.30); GLOMERULAR FILTRATION RATE > 60.0 (>42); GLUCOSE, FASTING 263 MG/DL (70-100); POTASSIUM SERUM 3.9 MEQ/L (3.5-5.1); SODIUM LEVEL 138 MEQ/L (136-145)
[2021-10-09] MEDS: CO-ENZYME Q10 50 MG CAP PO SCH ×2 (09:04→20:16)
[2021-10-09] MEDS: ENOXAPARIN 40MG/0.4ML SYRINGE (J1650 PER 10MG) SC SCH (09:04)
[2021-10-09] MEDS: DOCUSATE SODIUM 100MG CAPSULE PO SCH ×2 (09:04→20:16)
[2021-10-09] MEDS: HumaLOG INSULIN (NovoLOG) PER UNIT SC SCH ×4 (09:04→20:17)
[2021-10-09] MEDS: predniSONE 20 MG TAB PO SCH (09:05)
[2021-10-09] MEDS: CALCIUM/VITAMIN D 500 MG TAB PO SCH (09:05)
[2021-10-09] MEDS: BACLOFEN 5MG PER 1/2 TABLET PO SCH ×2 (09:05→20:16)
[2021-10-09] MEDS: ATORVASTATIN 20 MG TAB PO SCH (09:05)
[2021-10-09] MEDS: MULTIVITAMINS/MINERALS THERAP 1 TAB PO SCH (09:05)
[2021-10-09] MEDS: LACTOBACILLUS ACIDOPHILUS CAP (BACID) PO SCH (09:05)
[2021-10-09] MEDS: lisinopriL 40MG TAB PO SCH (09:05)
[2021-10-09] MEDS: PANTOPRAZOLE 40MG TAB (PROTONIX) PO SCH (09:05)
[2021-10-09] MEDS: MIRALAX *UNIT DOSE* 17GM PACKET PO SCH (09:13)
[2021-10-09] MEDS: LIDOCAINE 5% (LIDODERM) PATCH TOP SCH (09:13)
[2021-10-09] MEDS: amLODIPine 5 MG TAB PO SCH (10:54)
[2021-10-09] MEDS: RAMELTEON 8 MG TAB (ROZEREM) PO SCH (20:16)
[2021-10-09] MEDS: CYCLOBENZAPRINE 5MG TABLET PO PRN (20:16)
[2021-10-09] MEDS: GABAPENTIN 300 MG CAP PO SCH (20:16)
[2021-10-09] MEDS: LEVEMIR (INSULIN DETEMIR) 1 UNITS/0.01ML SC SCH (20:17)
[2021-10-09] MEDS: LATANOPROST 0.005% OPHTH SOLN 2.5 ML OU SCH (20:18)
[2021-10-09] MEDS: **NOTE PATIENT COMMENT** MISC XX SCH (20:19)
[2021-10-09] MEDS: SODIUM CHLORIDE 0.9% INJ 10 ML SYR IV PRN (23:42)
[2021-10-10 05:31] VITALS: BP 143/85
[2021-10-10] MEDS: SODIUM CHLORIDE 0.9% INJ 10 ML SYR IV SCH ×2 (05:44→17:02)
[2021-10-10 06:25] LABS: BASO # 0.1 10^3/uL (0.0-0.2); BASO % 0.6 % (0.0-1.0); EOS % 0.2 % (0.0-3.0); HEMATOCRIT 32.9 % (42.0-52.0); HEMOGLOBIN 10.8 g/dl (13.5-17.5); LYMPH # 2.2 10^3/uL (1.5-5.0); MEAN CORPUSCULAR HGB CONC 32.8 g/dl (32.0-36.5); MEAN CORPUSCULAR VOLUME 97.3 fl (80.0-96.0); MONO # 0.9 10^3/uL (0.0-0.8); NEUTROPHILS # 4.7 10^3/uL (1.5-8.5); NEUTROPHILS % 57.3 % (36.0-66.0); PLATELET COUNT, AUTOMATED 151 10^3/uL (150-450); RED BLOOD COUNT 3.38 10^6/uL (4.30-6.10); WHITE BLOOD COUNT 8.2 10^3/uL (4.0-10.0)
[2021-10-10 06:48] LABS: BLOOD UREA NITROGEN 31 MG/DL (7-18); CALCIUM LEVEL 8.3 MG/DL (8.8-10.2); CARBON DIOXIDE LEVEL 27 MEQ/L (21-32); CHLORIDE LEVEL 105 MEQ/L (98-107); CREATININE FOR GFR 1.05 MG/DL (0.70-1.30); GLOMERULAR FILTRATION RATE > 60.0 (>42); GLUCOSE, FASTING 214 MG/DL (70-100); SODIUM LEVEL 137 MEQ/L (136-145)
[2021-10-10] MEDS: LIDOCAINE 5% (LIDODERM) PATCH TOP SCH (09:00)
[2021-10-10 09:14] VITALS: BP 152/79
[2021-10-10] MEDS: MULTIVITAMINS/MINERALS THERAP 1 TAB PO SCH (09:23)
[2021-10-10] MEDS: BACLOFEN 5MG PER 1/2 TABLET PO SCH ×2 (09:23→22:28)
[2021-10-10] MEDS: DOCUSATE SODIUM 100MG CAPSULE PO SCH ×2 (09:23→22:29)
[2021-10-10] MEDS: LACTOBACILLUS ACIDOPHILUS CAP (BACID) PO SCH (09:23)
[2021-10-10] MEDS: CO-ENZYME Q10 50 MG CAP PO SCH ×2 (09:23→22:29)
[2021-10-10] MEDS: predniSONE 20 MG TAB PO SCH (09:23)
[2021-10-10] MEDS: PANTOPRAZOLE 40MG TAB (PROTONIX) PO SCH (09:24)
[2021-10-10] MEDS: lisinopriL 40MG TAB PO SCH (09:24)
[2021-10-10] MEDS: ATORVASTATIN 20 MG TAB PO SCH (09:24)
[2021-10-10] MEDS: MIRALAX *UNIT DOSE* 17GM PACKET PO SCH (09:24)
[2021-10-10] MEDS: CALCIUM/VITAMIN D 500 MG TAB PO SCH (09:24)
[2021-10-10] MEDS: amLODIPine 5 MG TAB PO SCH (09:24)
[2021-10-10] MEDS: HumaLOG INSULIN (NovoLOG) PER UNIT SC SCH ×4 (09:25→22:31)
[2021-10-10] MEDS: ENOXAPARIN 40MG/0.4ML SYRINGE (J1650 PER 10MG) SC SCH (09:25)
[2021-10-10] MEDS: VANCOMYCIN HCL 1,000 MG, VIAL MATE ADAPTER 1 EACH in NS 250 ML IV SCH ×2 (13:50→14:52)
[2021-10-10 14:00] VITALS: BP 163/87
[2021-10-10] MEDS: **NOTE PATIENT COMMENT** MISC XX SCH (21:00)
[2021-10-10 22:00] VITALS: BP 159/80
[2021-10-10] MEDS: GABAPENTIN 300 MG CAP PO SCH (22:28)
[2021-10-10] MEDS: RAMELTEON 8 MG TAB (ROZEREM) PO SCH (22:28)
[2021-10-10] MEDS: CYCLOBENZAPRINE 5MG TABLET PO PRN (22:28)
[2021-10-10] MEDS: traZODone 25MG PER 1/2 TABLET PO PRN (22:28)
[2021-10-10] MEDS: ACETAMINOPHEN 500 MG TAB PO PRN (22:30)
[2021-10-10] MEDS: LATANOPROST 0.005% OPHTH SOLN 2.5 ML OU SCH (22:31)
[2021-10-10] MEDS: LEVEMIR (INSULIN DETEMIR) 1 UNITS/0.01ML SC SCH (22:32)
[2021-10-11 06:00] VITALS: BP 176/95
[2021-10-11] MEDS: SODIUM CHLORIDE 0.9% INJ 10 ML SYR IV SCH ×2 (06:00→17:53)
[2021-10-11 06:05] LABS: HEMATOCRIT 31.6 % (42.0-52.0); HEMOGLOBIN 10.7 g/dl (13.5-17.5); MEAN CORPUSCULAR HEMOGLOBIN 32.6 pg (27.0-33.0); MEAN CORPUSCULAR HGB CONC 33.9 g/dl (32.0-36.5); MEAN CORPUSCULAR VOLUME 96.3 fl (80.0-96.0); PLATELET COUNT, AUTOMATED 140 10^3/uL (150-450); RED BLOOD COUNT 3.28 10^6/uL (4.30-6.10); WHITE BLOOD COUNT 7.7 10^3/uL (4.0-10.0)
[2021-10-11 06:25] LABS: BLOOD UREA NITROGEN 31 MG/DL (7-18); CALCIUM LEVEL 8.8 MG/DL (8.8-10.2); CARBON DIOXIDE LEVEL 28 MEQ/L (21-32); CHLORIDE LEVEL 105 MEQ/L (98-107); CREATININE FOR GFR 0.94 MG/DL (0.70-1.30); GLOMERULAR FILTRATION RATE > 60.0 (>42); GLUCOSE, FASTING 215 MG/DL (70-100); POTASSIUM SERUM 3.9 MEQ/L (3.5-5.1); SODIUM LEVEL 139 MEQ/L (136-145)
[2021-10-11 06:40] LABS: LYMPHOCYTES 26 % (16-44); METAMYELOCYTES 1 % (0-0); MONOCYTES 7 % (0-5); NEUTROPHILS 66 % (28-66); PLATELET ESTIMATE NORMAL (NORMAL)
[2021-10-11 09:10] LABS: VANCOMYCIN RANDOM 24.6 UG/ML
[2021-10-11] MEDS: MIRALAX *UNIT DOSE* 17GM PACKET PO SCH (09:40)
[2021-10-11] MEDS: ENOXAPARIN 40MG/0.4ML SYRINGE (J1650 PER 10MG) SC SCH (09:40)
[2021-10-11] MEDS: LIDOCAINE 5% (LIDODERM) PATCH TOP SCH (09:40)
[2021-10-11] MEDS: CO-ENZYME Q10 50 MG CAP PO SCH ×2 (09:41→21:11)
[2021-10-11] MEDS: BACTRIM 160MG/800MG DS TAB PO SCH (09:41)
[2021-10-11] MEDS: DOCUSATE SODIUM 100MG CAPSULE PO SCH ×2 (09:41→21:12)
[2021-10-11] MEDS: CALCIUM/VITAMIN D 500 MG TAB PO SCH (09:41)
[2021-10-11] MEDS: ATORVASTATIN 20 MG TAB PO SCH (09:41)
[2021-10-11] MEDS: LACTOBACILLUS ACIDOPHILUS CAP (BACID) PO SCH (09:41)
[2021-10-11] MEDS: predniSONE 20 MG TAB PO SCH (09:41)
[2021-10-11] MEDS: MULTIVITAMINS/MINERALS THERAP 1 TAB PO SCH (09:41)
[2021-10-11] MEDS: BACLOFEN 5MG PER 1/2 TABLET PO SCH ×2 (09:42→21:11)
[2021-10-11] MEDS: lisinopriL 40MG TAB PO SCH (09:42)
[2021-10-11] MEDS: amLODIPine 5 MG TAB PO SCH (09:42)
[2021-10-11] MEDS: PANTOPRAZOLE 40MG TAB (PROTONIX) PO SCH (09:42)
[2021-10-11] MEDS: HumaLOG INSULIN (NovoLOG) PER UNIT SC SCH ×4 (09:43→21:13)
[2021-10-11] MEDS: VANCOMYCIN HCL 1,000 MG, VIAL MATE ADAPTER 1 EACH in NS 250 ML IV SCH ×2 (10:39→11:53)
[2021-10-11] MEDS: SODIUM CHLORIDE 0.9% INJ 10 ML SYR IV PRN (13:51)
[2021-10-11] MEDS ORDERED: amLODIPine 5 MG TAB PO ONE (16:30)
[2021-10-11 21:00] VITALS: BP 157/81
[2021-10-11] MEDS: GABAPENTIN 300 MG CAP PO SCH (21:11)
[2021-10-11] MEDS: ACETAMINOPHEN 500 MG TAB PO PRN (21:12)
[2021-10-11] MEDS: CYCLOBENZAPRINE 5MG TABLET PO PRN (21:12)
[2021-10-11] MEDS: LATANOPROST 0.005% OPHTH SOLN 2.5 ML OU SCH (21:12)
[2021-10-11] MEDS: RAMELTEON 8 MG TAB (ROZEREM) PO SCH (21:12)
[2021-10-11] MEDS: traZODone 25MG PER 1/2 TABLET PO PRN (21:12)
[2021-10-11] MEDS: LEVEMIR (INSULIN DETEMIR) 1 UNITS/0.01ML SC SCH (21:13)
[2021-10-11] MEDS: **NOTE PATIENT COMMENT** MISC XX SCH (21:32)
[2021-10-12 05:27] VITALS: BP 167/93
[2021-10-12] MEDS: SODIUM CHLORIDE 0.9% INJ 10 ML SYR IV SCH ×2 (05:40→17:49)
[2021-10-12 06:07] LABS: HEMATOCRIT 32.4 % (42.0-52.0); HEMOGLOBIN 11.1 g/dl (13.5-17.5); MEAN CORPUSCULAR HEMOGLOBIN 32.7 pg (27.0-33.0); MEAN CORPUSCULAR HGB CONC 34.3 g/dl (32.0-36.5); MEAN CORPUSCULAR VOLUME 95.6 fl (80.0-96.0); PLATELET COUNT, AUTOMATED 138 10^3/uL (150-450); RED BLOOD COUNT 3.39 10^6/uL (4.30-6.10); WHITE BLOOD COUNT 8.2 10^3/uL (4.0-10.0)
[2021-10-12] MEDS: LIDOCAINE 5% (LIDODERM) PATCH TOP SCH (09:00)
[2021-10-12] MEDS: ENOXAPARIN 40MG/0.4ML SYRINGE (J1650 PER 10MG) SC SCH (09:24)
[2021-10-12] MEDS: MIRALAX *UNIT DOSE* 17GM PACKET PO SCH (09:24)
[2021-10-12] MEDS: HumaLOG INSULIN (NovoLOG) PER UNIT SC SCH ×4 (09:24→20:53)
[2021-10-12] MEDS: DOCUSATE SODIUM 100MG CAPSULE PO SCH ×2 (09:25→20:51)
[2021-10-12] MEDS: predniSONE 20 MG TAB PO SCH (09:25)
[2021-10-12] MEDS: LACTOBACILLUS ACIDOPHILUS CAP (BACID) PO SCH (09:25)
[2021-10-12] MEDS: CO-ENZYME Q10 50 MG CAP PO SCH ×2 (09:25→20:51)
[2021-10-12] MEDS: PANTOPRAZOLE 40MG TAB (PROTONIX) PO SCH (09:25)
[2021-10-12] MEDS: BACLOFEN 5MG PER 1/2 TABLET PO SCH ×2 (09:25→20:51)
[2021-10-12] MEDS: CALCIUM/VITAMIN D 500 MG TAB PO SCH (09:25)
[2021-10-12] MEDS: amLODIPine 5 MG TAB PO SCH (09:25)
[2021-10-12] MEDS: ATORVASTATIN 20 MG TAB PO SCH (09:26)
[2021-10-12] MEDS: lisinopriL 40MG TAB PO SCH (09:26)
[2021-10-12] MEDS: MULTIVITAMINS/MINERALS THERAP 1 TAB PO SCH (09:26)
[2021-10-12] MEDS: VANCOMYCIN HCL 1,000 MG, VIAL MATE ADAPTER 1 EACH in NS 250 ML IV SCH ×2 (11:20→12:20)
[2021-10-12 20:38] VITALS: BP 145/78
[2021-10-12] MEDS: LATANOPROST 0.005% OPHTH SOLN 2.5 ML OU SCH (20:51)
[2021-10-12] MEDS: GABAPENTIN 300 MG CAP PO SCH (20:51)
[2021-10-12] MEDS: traZODone 25MG PER 1/2 TABLET PO PRN (20:51)
[2021-10-12] MEDS: RAMELTEON 8 MG TAB (ROZEREM) PO SCH (20:51)
[2021-10-12] MEDS: CYCLOBENZAPRINE 5MG TABLET PO PRN (20:51)
[2021-10-12] MEDS: ACETAMINOPHEN 500 MG TAB PO PRN (20:52)
[2021-10-12] MEDS: LEVEMIR (INSULIN DETEMIR) 1 UNITS/0.01ML SC SCH (20:53)
[2021-10-12] MEDS: **NOTE PATIENT COMMENT** MISC XX SCH (21:44)
[2021-10-13 05:28] VITALS: BP 145/83
[2021-10-13] MEDS: SODIUM CHLORIDE 0.9% INJ 10 ML SYR IV SCH ×2 (05:33→17:43)
[2021-10-13] MEDS: lisinopriL 40MG TAB PO SCH (08:42)
[2021-10-13] MEDS: LACTOBACILLUS ACIDOPHILUS CAP (BACID) PO SCH (08:42)
[2021-10-13] MEDS: DOCUSATE SODIUM 100MG CAPSULE PO SCH ×2 (08:42→20:49)
[2021-10-13] MEDS: ENOXAPARIN 40MG/0.4ML SYRINGE (J1650 PER 10MG) SC SCH (08:42)
[2021-10-13] MEDS: MULTIVITAMINS/MINERALS THERAP 1 TAB PO SCH (08:42)
[2021-10-13] MEDS: LIDOCAINE 5% (LIDODERM) PATCH TOP SCH (08:42)
[2021-10-13] MEDS: BACTRIM 160MG/800MG DS TAB PO SCH (08:42)
[2021-10-13] MEDS: CO-ENZYME Q10 50 MG CAP PO SCH ×2 (08:44→20:49)
[2021-10-13] MEDS: MIRALAX *UNIT DOSE* 17GM PACKET PO SCH (08:44)
[2021-10-13] MEDS: CALCIUM/VITAMIN D 500 MG TAB PO SCH (08:44)
[2021-10-13] MEDS: BACLOFEN 5MG PER 1/2 TABLET PO SCH ×2 (08:44→20:49)
[2021-10-13] MEDS: ATORVASTATIN 20 MG TAB PO SCH (08:44)
[2021-10-13] MEDS: predniSONE 20 MG TAB PO SCH (08:45)
[2021-10-13] MEDS: amLODIPine 5 MG TAB PO SCH (08:46)
[2021-10-13] MEDS: HumaLOG INSULIN (NovoLOG) PER UNIT SC SCH ×4 (08:46→20:52)
[2021-10-13] MEDS: PANTOPRAZOLE 40MG TAB (PROTONIX) PO SCH (08:47)
[2021-10-13] MEDS: VANCOMYCIN HCL 1,000 MG, VIAL MATE ADAPTER 1 EACH in NS 250 ML IV SCH ×2 (11:35→11:56)
[2021-10-13] MEDS: SODIUM CHLORIDE 0.9% INJ 10 ML SYR IV PRN (14:54)
[2021-10-13] MEDS: GABAPENTIN 300 MG CAP PO SCH (20:49)
[2021-10-13] MEDS: RAMELTEON 8 MG TAB (ROZEREM) PO SCH (20:50)
[2021-10-13] MEDS: LEVEMIR (INSULIN DETEMIR) 1 UNITS/0.01ML SC SCH (20:51)
[2021-10-13] MEDS: LATANOPROST 0.005% OPHTH SOLN 2.5 ML OU SCH (20:53)
[2021-10-13] MEDS: **NOTE PATIENT COMMENT** MISC XX SCH (21:00)
[2021-10-14 05:15] VITALS: BP 152/77
[2021-10-14] MEDS: SODIUM CHLORIDE 0.9% INJ 10 ML SYR IV SCH ×2 (05:53→18:00)
[2021-10-14 06:50] LABS: BLOOD UREA NITROGEN 28 MG/DL (7-18); CALCIUM LEVEL 9.3 MG/DL (8.8-10.2); CARBON DIOXIDE LEVEL 27 MEQ/L (21-32); CHLORIDE LEVEL 105 MEQ/L (98-107); GLOMERULAR FILTRATION RATE > 60.0 (>42); GLUCOSE, FASTING 170 MG/DL (70-100); SODIUM LEVEL 139 MEQ/L (136-145)
[2021-10-14] MEDS: LIDOCAINE 5% (LIDODERM) PATCH TOP SCH (09:41)
[2021-10-14] MEDS: MIRALAX *UNIT DOSE* 17GM PACKET PO SCH (09:41)
[2021-10-14] MEDS: HumaLOG INSULIN (NovoLOG) PER UNIT SC SCH ×4 (09:41→20:55)
[2021-10-14] MEDS: DOCUSATE SODIUM 100MG CAPSULE PO SCH ×2 (09:42→20:54)
[2021-10-14] MEDS: CALCIUM/VITAMIN D 500 MG TAB PO SCH (09:42)
[2021-10-14] MEDS: MULTIVITAMINS/MINERALS THERAP 1 TAB PO SCH (09:42)
[2021-10-14] MEDS: PANTOPRAZOLE 40MG TAB (PROTONIX) PO SCH (09:42)
[2021-10-14] MEDS: CO-ENZYME Q10 50 MG CAP PO SCH ×2 (09:42→20:52)
[2021-10-14] MEDS: ENOXAPARIN 40MG/0.4ML SYRINGE (J1650 PER 10MG) SC SCH (09:42)
[2021-10-14] MEDS: BACLOFEN 5MG PER 1/2 TABLET PO SCH ×2 (09:42→20:53)
[2021-10-14] MEDS: LACTOBACILLUS ACIDOPHILUS CAP (BACID) PO SCH (09:42)
[2021-10-14] MEDS: ATORVASTATIN 20 MG TAB PO SCH (09:43)
[2021-10-14] MEDS: predniSONE 20 MG TAB PO SCH (09:43)
[2021-10-14] MEDS: lisinopriL 40MG TAB PO SCH (09:48)
[2021-10-14] MEDS: amLODIPine 5 MG TAB PO SCH (09:48)
[2021-10-14] MEDS: VANCOMYCIN HCL 1,000 MG, VIAL MATE ADAPTER 1 EACH in NS 250 ML IV SCH ×2 (12:11→13:29)
[2021-10-14] MEDS: SODIUM CHLORIDE 0.9% INJ 10 ML SYR IV PRN (13:30)
[2021-10-14] MEDS: RAMELTEON 8 MG TAB (ROZEREM) PO SCH (20:52)
[2021-10-14] MEDS: GABAPENTIN 300 MG CAP PO SCH (20:54)
[2021-10-14] MEDS: LEVEMIR (INSULIN DETEMIR) 1 UNITS/0.01ML SC SCH (20:56)
[2021-10-14] MEDS: LATANOPROST 0.005% OPHTH SOLN 2.5 ML OU SCH (20:56)
[2021-10-14] MEDS: **NOTE PATIENT COMMENT** MISC XX SCH (21:00)
[2021-10-14 21:24] VITALS: BP 144/79
[2021-10-15] MEDS: traZODone 25MG PER 1/2 TABLET PO PRN ×2 (00:05→20:07)
[2021-10-15 06:00] VITALS: BP 149/83
[2021-10-15] MEDS: SODIUM CHLORIDE 0.9% INJ 10 ML SYR IV SCH ×2 (06:01→17:08)
[2021-10-15 06:25] LABS: HEMATOCRIT 32.3 % (42.0-52.0); MEAN CORPUSCULAR HEMOGLOBIN 32.1 pg (27.0-33.0); MEAN CORPUSCULAR HGB CONC 34.1 g/dl (32.0-36.5); MEAN CORPUSCULAR VOLUME 94.2 fl (80.0-96.0); PLATELET COUNT, AUTOMATED 130 10^3/uL (150-450); RED BLOOD COUNT 3.43 10^6/uL (4.30-6.10); WHITE BLOOD COUNT 9.1 10^3/uL (4.0-10.0)
[2021-10-15] MEDS: MIRALAX *UNIT DOSE* 17GM PACKET PO SCH (08:19)
[2021-10-15] MEDS: ATORVASTATIN 20 MG TAB PO SCH (08:19)
[2021-10-15] MEDS: BACTRIM 160MG/800MG DS TAB PO SCH (08:19)
[2021-10-15] MEDS: MULTIVITAMINS/MINERALS THERAP 1 TAB PO SCH (08:19)
[2021-10-15] MEDS: lisinopriL 40MG TAB PO SCH (08:19)
[2021-10-15] MEDS: HumaLOG INSULIN (NovoLOG) PER UNIT SC SCH ×4 (08:19→20:12)
[2021-10-15] MEDS: CALCIUM/VITAMIN D 500 MG TAB PO SCH (08:19)
[2021-10-15] MEDS: DOCUSATE SODIUM 100MG CAPSULE PO SCH ×2 (08:19→20:07)
[2021-10-15] MEDS: ENOXAPARIN 40MG/0.4ML SYRINGE (J1650 PER 10MG) SC SCH (08:19)
[2021-10-15] MEDS: LIDOCAINE 5% (LIDODERM) PATCH TOP SCH (08:20)
[2021-10-15] MEDS: LACTOBACILLUS ACIDOPHILUS CAP (BACID) PO SCH (08:20)
[2021-10-15] MEDS: amLODIPine 5 MG TAB PO SCH (08:20)
[2021-10-15] MEDS: BACLOFEN 5MG PER 1/2 TABLET PO SCH ×2 (08:20→20:07)
[2021-10-15] MEDS: PANTOPRAZOLE 40MG TAB (PROTONIX) PO SCH (08:20)
[2021-10-15] MEDS: CO-ENZYME Q10 50 MG CAP PO SCH ×2 (08:20→20:10)
[2021-10-15] MEDS: VANCOMYCIN HCL 1,000 MG, VIAL MATE ADAPTER 1 EACH in NS 250 ML IV SCH ×2 (11:18→12:51)
[2021-10-15] MEDS: CYCLOBENZAPRINE 5MG TABLET PO PRN (20:07)
[2021-10-15] MEDS: RAMELTEON 8 MG TAB (ROZEREM) PO SCH (20:07)
[2021-10-15] MEDS: GABAPENTIN 300 MG CAP PO SCH (20:07)
[2021-10-15] MEDS: ACETAMINOPHEN 500 MG TAB PO PRN (20:08)
[2021-10-15] MEDS: LATANOPROST 0.005% OPHTH SOLN 2.5 ML OU SCH (20:13)
[2021-10-15] MEDS: LEVEMIR (INSULIN DETEMIR) 1 UNITS/0.01ML SC SCH (20:13)
[2021-10-15] MEDS: **NOTE PATIENT COMMENT** MISC XX SCH (21:00)
[2021-10-16 05:20] VITALS: BP 142/77
[2021-10-16] MEDS: SODIUM CHLORIDE 0.9% INJ 10 ML SYR IV SCH ×2 (05:21→17:31)
[2021-10-16] MEDS: HumaLOG INSULIN (NovoLOG) PER UNIT SC SCH ×4 (08:56→20:38)
[2021-10-16] MEDS: ENOXAPARIN 40MG/0.4ML SYRINGE (J1650 PER 10MG) SC SCH (08:57)
[2021-10-16] MEDS: DOCUSATE SODIUM 100MG CAPSULE PO SCH ×2 (08:57→21:00)
[2021-10-16] MEDS: PANTOPRAZOLE 40MG TAB (PROTONIX) PO SCH (08:57)
[2021-10-16] MEDS: LIDOCAINE 5% (LIDODERM) PATCH TOP SCH (08:57)
[2021-10-16] MEDS: ATORVASTATIN 20 MG TAB PO SCH (08:57)
[2021-10-16] MEDS: LACTOBACILLUS ACIDOPHILUS CAP (BACID) PO SCH (08:57)
[2021-10-16] MEDS: BACLOFEN 5MG PER 1/2 TABLET PO SCH ×2 (08:57→21:22)
[2021-10-16] MEDS: CO-ENZYME Q10 50 MG CAP PO SCH ×2 (08:57→21:21)
[2021-10-16] MEDS: MIRALAX *UNIT DOSE* 17GM PACKET PO SCH (08:57)
[2021-10-16] MEDS: CALCIUM/VITAMIN D 500 MG TAB PO SCH (08:58)
[2021-10-16] MEDS: lisinopriL 40MG TAB PO SCH (08:58)
[2021-10-16] MEDS: MULTIVITAMINS/MINERALS THERAP 1 TAB PO SCH (08:58)
[2021-10-16] MEDS: amLODIPine 5 MG TAB PO SCH (08:58)
[2021-10-16] MEDS: VANCOMYCIN HCL 1,000 MG, VIAL MATE ADAPTER 1 EACH in NS 250 ML IV SCH ×2 (11:30→12:49)
[2021-10-16] MEDS: ACETAMINOPHEN 500 MG TAB PO PRN ×2 (11:38→21:23)
[2021-10-16 12:41] VITALS: BP 122/76
[2021-10-16] MEDS: **NOTE PATIENT COMMENT** MISC XX SCH (21:00)
[2021-10-16] MEDS: traZODone 25MG PER 1/2 TABLET PO PRN (21:21)
[2021-10-16] MEDS: GABAPENTIN 300 MG CAP PO SCH (21:21)
[2021-10-16] MEDS: RAMELTEON 8 MG TAB (ROZEREM) PO SCH (21:21)
[2021-10-16] MEDS: CYCLOBENZAPRINE 5MG TABLET PO PRN (21:21)
[2021-10-16] MEDS: LEVEMIR (INSULIN DETEMIR) 1 UNITS/0.01ML SC SCH (21:23)
[2021-10-16] MEDS: LATANOPROST 0.005% OPHTH SOLN 2.5 ML OU SCH (21:23)
[2021-10-17] MEDS: SODIUM CHLORIDE 0.9% INJ 10 ML SYR IV SCH ×2 (05:53→17:06)
[2021-10-17 06:04] VITALS: BP 137/77
[2021-10-17] MEDS: MIRALAX *UNIT DOSE* 17GM PACKET PO SCH (08:58)
[2021-10-17] MEDS: PANTOPRAZOLE 40MG TAB (PROTONIX) PO SCH (08:59)
[2021-10-17] MEDS: DOCUSATE SODIUM 100MG CAPSULE PO SCH ×2 (08:59→21:53)
[2021-10-17] MEDS: lisinopriL 40MG TAB PO SCH (08:59)
[2021-10-17] MEDS: CO-ENZYME Q10 50 MG CAP PO SCH ×2 (08:59→21:53)
[2021-10-17] MEDS: LACTOBACILLUS ACIDOPHILUS CAP (BACID) PO SCH (08:59)
[2021-10-17] MEDS: amLODIPine 5 MG TAB PO SCH (08:59)
[2021-10-17] MEDS: MULTIVITAMINS/MINERALS THERAP 1 TAB PO SCH (08:59)
[2021-10-17] MEDS: CALCIUM/VITAMIN D 500 MG TAB PO SCH (08:59)
[2021-10-17] MEDS: BACLOFEN 5MG PER 1/2 TABLET PO SCH ×2 (08:59→21:53)
[2021-10-17] MEDS: LIDOCAINE 5% (LIDODERM) PATCH TOP SCH (09:00)
[2021-10-17] MEDS: HumaLOG INSULIN (NovoLOG) PER UNIT SC SCH ×4 (09:00→21:00)
[2021-10-17] MEDS: ENOXAPARIN 40MG/0.4ML SYRINGE (J1650 PER 10MG) SC SCH (09:00)
[2021-10-17] MEDS: ATORVASTATIN 20 MG TAB PO SCH (09:00)
[2021-10-17] MEDS: VANCOMYCIN HCL 1,000 MG, VIAL MATE ADAPTER 1 EACH in NS 250 ML IV SCH ×2 (11:08→12:11)
[2021-10-17] MEDS: SODIUM CHLORIDE 0.9% INJ 10 ML SYR IV PRN (14:03)
[2021-10-17] MEDS: ACETAMINOPHEN 500 MG TAB PO PRN (19:29)
[2021-10-17] MEDS: **NOTE PATIENT COMMENT** MISC XX SCH (21:00)
[2021-10-17] MEDS: GABAPENTIN 300 MG CAP PO SCH (21:52)
[2021-10-17] MEDS: LEVEMIR (INSULIN DETEMIR) 1 UNITS/0.01ML SC SCH (21:52)
[2021-10-17] MEDS: RAMELTEON 8 MG TAB (ROZEREM) PO SCH (21:53)
[2021-10-17] MEDS: LATANOPROST 0.005% OPHTH SOLN 2.5 ML OU SCH (21:58)
[2021-10-17] MEDS: traZODone 25MG PER 1/2 TABLET PO PRN (22:06)
[2021-10-18] MEDS: SODIUM CHLORIDE 0.9% INJ 10 ML SYR IV SCH ×2 (06:14→18:35)
[2021-10-18 06:18] VITALS: BP 135/77
[2021-10-18 06:30] LABS: HEMATOCRIT 32.7 % (42.0-52.0); MEAN CORPUSCULAR HEMOGLOBIN 32.1 pg (27.0-33.0); MEAN CORPUSCULAR HGB CONC 33.6 g/dl (32.0-36.5); MEAN CORPUSCULAR VOLUME 95.3 fl (80.0-96.0); PLATELET COUNT, AUTOMATED 112 10^3/uL (150-450); RED BLOOD COUNT 3.43 10^6/uL (4.30-6.10); WHITE BLOOD COUNT 8.4 10^3/uL (4.0-10.0)
[2021-10-18] MEDS: HumaLOG INSULIN (NovoLOG) PER UNIT SC SCH ×4 (08:43→20:39)
[2021-10-18] MEDS: CALCIUM/VITAMIN D 500 MG TAB PO SCH (08:44)
[2021-10-18] MEDS: PANTOPRAZOLE 40MG TAB (PROTONIX) PO SCH (08:44)
[2021-10-18] MEDS: LACTOBACILLUS ACIDOPHILUS CAP (BACID) PO SCH (08:44)
[2021-10-18] MEDS: DOCUSATE SODIUM 100MG CAPSULE PO SCH ×2 (08:45→20:39)
[2021-10-18] MEDS: BACTRIM 160MG/800MG DS TAB PO SCH (08:45)
[2021-10-18] MEDS: BACLOFEN 5MG PER 1/2 TABLET PO SCH ×2 (08:45→20:39)
[2021-10-18] MEDS: ATORVASTATIN 20 MG TAB PO SCH (08:45)
[2021-10-18] MEDS: MULTIVITAMINS/MINERALS THERAP 1 TAB PO SCH (08:45)
[2021-10-18] MEDS: amLODIPine 5 MG TAB PO SCH (08:45)
[2021-10-18] MEDS: lisinopriL 40MG TAB PO SCH (08:45)
[2021-10-18] MEDS: CO-ENZYME Q10 50 MG CAP PO SCH ×2 (08:46→20:40)
[2021-10-18] MEDS: MIRALAX *UNIT DOSE* 17GM PACKET PO SCH (08:46)
[2021-10-18] MEDS: LIDOCAINE 5% (LIDODERM) PATCH TOP SCH ×2 (08:47→09:00)
[2021-10-18] MEDS: VANCOMYCIN HCL 1,000 MG, VIAL MATE ADAPTER 1 EACH in NS 250 ML IV SCH ×2 (10:35→12:02)
[2021-10-18] MEDS: ENOXAPARIN 40MG/0.4ML SYRINGE (J1650 PER 10MG) SC SCH (12:10)
[2021-10-18] MEDS: SODIUM CHLORIDE 0.9% INJ 10 ML SYR IV PRN (13:17)
[2021-10-18] MEDS: RAMELTEON 8 MG TAB (ROZEREM) PO SCH (20:39)
[2021-10-18] MEDS: LEVEMIR (INSULIN DETEMIR) 1 UNITS/0.01ML SC SCH (20:39)
[2021-10-18] MEDS: GABAPENTIN 300 MG CAP PO SCH (20:39)
[2021-10-18] MEDS: LATANOPROST 0.005% OPHTH SOLN 2.5 ML OU SCH (20:40)
[2021-10-18] MEDS: **NOTE PATIENT COMMENT** MISC XX SCH (20:41)
[2021-10-18] MEDS: traZODone 25MG PER 1/2 TABLET PO PRN (20:42)
[2021-10-19] MEDS: SODIUM CHLORIDE 0.9% INJ 10 ML SYR IV SCH ×2 (05:39→17:52)
[2021-10-19 06:06] VITALS: BP 121/77
[2021-10-19 06:16] LABS: HEMATOCRIT 32.3 % (42.0-52.0); HEMOGLOBIN 10.9 g/dl (13.5-17.5); MEAN CORPUSCULAR HEMOGLOBIN 32.7 pg (27.0-33.0); MEAN CORPUSCULAR HGB CONC 33.7 g/dl (32.0-36.5); PLATELET COUNT, AUTOMATED 110 10^3/uL (150-450); RED BLOOD COUNT 3.33 10^6/uL (4.30-6.10); WHITE BLOOD COUNT 9.2 10^3/uL (4.0-10.0)
[2021-10-19 06:37] LABS: BLOOD UREA NITROGEN 32 MG/DL (7-18); CALCIUM LEVEL 8.6 MG/DL (8.8-10.2); CARBON DIOXIDE LEVEL 26 MEQ/L (21-32); CHLORIDE LEVEL 104 MEQ/L (98-107); CREATININE FOR GFR 1.13 MG/DL (0.70-1.30); GLOMERULAR FILTRATION RATE > 60.0 (>42); GLUCOSE, FASTING 170 MG/DL (70-100); MAGNESIUM LEVEL 1.9 MG/DL (1.8-2.4); POTASSIUM SERUM 4.2 MEQ/L (3.5-5.1); SODIUM LEVEL 136 MEQ/L (136-145)
[2021-10-19] MEDS: MIRALAX *UNIT DOSE* 17GM PACKET PO SCH (09:00)
[2021-10-19] MEDS: MULTIVITAMINS/MINERALS THERAP 1 TAB PO SCH (09:00)
[2021-10-19] MEDS: ENOXAPARIN 40MG/0.4ML SYRINGE (J1650 PER 10MG) SC SCH (09:00)
[2021-10-19] MEDS: DOCUSATE SODIUM 100MG CAPSULE PO SCH ×2 (09:00→20:33)
[2021-10-19] MEDS: LIDOCAINE 5% (LIDODERM) PATCH TOP SCH (09:00)
[2021-10-19] MEDS: HumaLOG INSULIN (NovoLOG) PER UNIT SC SCH ×4 (09:00→20:29)
[2021-10-19] MEDS: amLODIPine 5 MG TAB PO SCH (09:01)
[2021-10-19] MEDS: CALCIUM/VITAMIN D 500 MG TAB PO SCH (09:01)
[2021-10-19] MEDS: LACTOBACILLUS ACIDOPHILUS CAP (BACID) PO SCH (09:01)
[2021-10-19] MEDS: BACLOFEN 5MG PER 1/2 TABLET PO SCH ×2 (09:01→20:33)
[2021-10-19] MEDS: PANTOPRAZOLE 40MG TAB (PROTONIX) PO SCH (09:01)
[2021-10-19] MEDS: lisinopriL 40MG TAB PO SCH (09:01)
[2021-10-19] MEDS: ATORVASTATIN 20 MG TAB PO SCH (09:01)
[2021-10-19] MEDS: CO-ENZYME Q10 50 MG CAP PO SCH ×2 (09:01→20:33)
[2021-10-19] MEDS: VANCOMYCIN HCL 1,000 MG, VIAL MATE ADAPTER 1 EACH in NS 250 ML IV SCH ×2 (12:33→13:50)
[2021-10-19] MEDS ORDERED: PILL CUTTER 1 EACH XX PRN (20:30)
[2021-10-19] MEDS: LEVEMIR (INSULIN DETEMIR) 1 UNITS/0.01ML SC SCH (20:32)
[2021-10-19] MEDS: traZODone 50 MG TAB PO PRN (20:32)
[2021-10-19] MEDS: GABAPENTIN 300 MG CAP PO SCH (20:33)
[2021-10-19] MEDS: RAMELTEON 8 MG TAB (ROZEREM) PO SCH (20:33)
[2021-10-19] MEDS: **NOTE PATIENT COMMENT** MISC XX SCH (21:10)
[2021-10-19] MEDS: LATANOPROST 0.005% OPHTH SOLN 2.5 ML OU SCH (21:10)
[2021-10-20] MEDS: SODIUM CHLORIDE 0.9% INJ 10 ML SYR IV SCH ×2 (06:08→17:25)
[2021-10-20 06:12] VITALS: BP 130/73
[2021-10-20] MEDS: HumaLOG INSULIN (NovoLOG) PER UNIT SC SCH ×4 (08:24→20:20)
[2021-10-20] MEDS: CALCIUM/VITAMIN D 500 MG TAB PO SCH (08:24)
[2021-10-20] MEDS: DOCUSATE SODIUM 100MG CAPSULE PO SCH ×2 (08:24→20:17)
[2021-10-20] MEDS: ENOXAPARIN 40MG/0.4ML SYRINGE (J1650 PER 10MG) SC SCH (08:24)
[2021-10-20] MEDS: MIRALAX *UNIT DOSE* 17GM PACKET PO SCH (08:24)
[2021-10-20] MEDS: lisinopriL 40MG TAB PO SCH (08:25)
[2021-10-20] MEDS: MULTIVITAMINS/MINERALS THERAP 1 TAB PO SCH (08:25)
[2021-10-20] MEDS: PANTOPRAZOLE 40MG TAB (PROTONIX) PO SCH (08:25)
[2021-10-20] MEDS: BACTRIM 160MG/800MG DS TAB PO SCH (08:25)
[2021-10-20] MEDS: LACTOBACILLUS ACIDOPHILUS CAP (BACID) PO SCH (08:25)
[2021-10-20] MEDS: ATORVASTATIN 20 MG TAB PO SCH (08:25)
[2021-10-20] MEDS: BACLOFEN 5MG PER 1/2 TABLET PO SCH ×2 (08:25→20:18)
[2021-10-20] MEDS: CO-ENZYME Q10 50 MG CAP PO SCH ×2 (08:25→20:18)
[2021-10-20] MEDS: amLODIPine 5 MG TAB PO SCH (08:26)
[2021-10-20] MEDS: LIDOCAINE 5% (LIDODERM) PATCH TOP SCH (09:00)
[2021-10-20] MEDS ORDERED: predniSONE 20 MG TAB PO ONE (10:50)
[2021-10-20] MEDS: VANCOMYCIN HCL 1,000 MG, VIAL MATE ADAPTER 1 EACH in NS 250 ML IV SCH ×2 (11:09→12:32)
[2021-10-20] MEDS: GABAPENTIN 300 MG CAP PO SCH (20:18)
[2021-10-20] MEDS: RAMELTEON 8 MG TAB (ROZEREM) PO SCH (20:18)
[2021-10-20] MEDS: LEVEMIR (INSULIN DETEMIR) 1 UNITS/0.01ML SC SCH (20:19)
[2021-10-20] MEDS: **NOTE PATIENT COMMENT** MISC XX SCH (20:20)
[2021-10-20] MEDS: LATANOPROST 0.005% OPHTH SOLN 2.5 ML OU SCH (20:20)
[2021-10-20] MEDS: traZODone 50 MG TAB PO PRN (20:25)
[2021-10-21 05:18] VITALS: BP 128/72
[2021-10-21] MEDS: SODIUM CHLORIDE 0.9% INJ 10 ML SYR IV SCH ×2 (05:49→18:00)
[2021-10-21 06:01] LABS: HEMOGLOBIN 9.6 g/dl (13.5-17.5); MEAN CORPUSCULAR HEMOGLOBIN 32.1 pg (27.0-33.0); MEAN CORPUSCULAR HGB CONC 34.3 g/dl (32.0-36.5); MEAN CORPUSCULAR VOLUME 93.6 fl (80.0-96.0); PLATELET COUNT, AUTOMATED 112 10^3/uL (150-450); RED BLOOD COUNT 2.99 10^6/uL (4.30-6.10); WHITE BLOOD COUNT 7.3 10^3/uL (4.0-10.0)
[2021-10-21 06:27] LABS: BLOOD UREA NITROGEN 28 MG/DL (7-18); C REACTIVE PROTEIN QUANTITATIV 7.47 MG/DL (0.00-0.30); CALCIUM LEVEL 8.9 MG/DL (8.8-10.2); CARBON DIOXIDE LEVEL 26 MEQ/L (21-32); CHLORIDE LEVEL 107 MEQ/L (98-107); CREATININE FOR GFR 0.98 MG/DL (0.70-1.30); GLOMERULAR FILTRATION RATE > 60.0 (>42); GLUCOSE, FASTING 211 MG/DL (70-100); MAGNESIUM LEVEL 2.1 MG/DL (1.8-2.4); POTASSIUM SERUM 4.3 MEQ/L (3.5-5.1); SODIUM LEVEL 139 MEQ/L (136-145)
[2021-10-21 06:30] LABS: ERYTHROCYTE SEDIMENTATION RATE 71 mm/hr (0-20)
[2021-10-21 07:09] LABS: HEMOGLOBIN A1c 7.4 %
[2021-10-21] MEDS: lisinopriL 40MG TAB PO SCH (08:29)
[2021-10-21] MEDS: CALCIUM/VITAMIN D 500 MG TAB PO SCH (08:29)
[2021-10-21] MEDS: MULTIVITAMINS/MINERALS THERAP 1 TAB PO SCH (08:29)
[2021-10-21] MEDS: PANTOPRAZOLE 40MG TAB (PROTONIX) PO SCH (08:29)
[2021-10-21] MEDS: ATORVASTATIN 20 MG TAB PO SCH (08:29)
[2021-10-21] MEDS: amLODIPine 5 MG TAB PO SCH (08:29)
[2021-10-21] MEDS: BACLOFEN 5MG PER 1/2 TABLET PO SCH ×2 (08:30→21:47)
[2021-10-21] MEDS: LACTOBACILLUS ACIDOPHILUS CAP (BACID) PO SCH (08:30)
[2021-10-21] MEDS: MIRALAX *UNIT DOSE* 17GM PACKET PO SCH (08:30)
[2021-10-21] MEDS: CO-ENZYME Q10 50 MG CAP PO SCH ×2 (08:30→21:46)
[2021-10-21] MEDS: DOCUSATE SODIUM 100MG CAPSULE PO SCH ×2 (08:30→21:46)
[2021-10-21] MEDS: ENOXAPARIN 40MG/0.4ML SYRINGE (J1650 PER 10MG) SC SCH (08:31)
[2021-10-21] MEDS: HumaLOG INSULIN (NovoLOG) PER UNIT SC SCH ×4 (08:32→21:48)
[2021-10-21] MEDS: LIDOCAINE 5% (LIDODERM) PATCH TOP SCH (08:32)
[2021-10-21] MEDS ORDERED: predniSONE 20 MG TAB PO SCH (09:00)
[2021-10-21] MEDS: VANCOMYCIN HCL 1,000 MG, VIAL MATE ADAPTER 1 EACH in NS 250 ML IV SCH ×2 (11:50→13:02)
[2021-10-21] MEDS: SODIUM CHLORIDE 0.9% INJ 10 ML SYR IV PRN (14:10)
[2021-10-21] MEDS: **NOTE PATIENT COMMENT** MISC XX SCH (21:00)
[2021-10-21] MEDS: traZODone 50 MG TAB PO PRN (21:46)
[2021-10-21] MEDS: RAMELTEON 8 MG TAB (ROZEREM) PO SCH (21:47)
[2021-10-21] MEDS: LEVEMIR (INSULIN DETEMIR) 1 UNITS/0.01ML SC SCH (21:47)
[2021-10-21] MEDS: GABAPENTIN 300 MG CAP PO SCH (21:47)
[2021-10-21] MEDS: LATANOPROST 0.005% OPHTH SOLN 2.5 ML OU SCH (21:48)
[2021-10-22 05:46] VITALS: BP 135/79
[2021-10-22] MEDS: SODIUM CHLORIDE 0.9% INJ 10 ML SYR IV SCH ×2 (06:16→17:40)
[2021-10-22] MEDS: LIDOCAINE 5% (LIDODERM) PATCH TOP SCH (09:00)
[2021-10-22] MEDS: MIRALAX *UNIT DOSE* 17GM PACKET PO SCH (09:02)
[2021-10-22] MEDS: BACTRIM 160MG/800MG DS TAB PO SCH (09:03)
[2021-10-22] MEDS: BACLOFEN 5MG PER 1/2 TABLET PO SCH ×2 (09:03→21:28)
[2021-10-22] MEDS: PANTOPRAZOLE 40MG TAB (PROTONIX) PO SCH (09:03)
[2021-10-22] MEDS: predniSONE 10 MG TAB PO SCH (09:03)
[2021-10-22] MEDS: LACTOBACILLUS ACIDOPHILUS CAP (BACID) PO SCH (09:03)
[2021-10-22] MEDS: lisinopriL 40MG TAB PO SCH (09:03)
[2021-10-22] MEDS: CALCIUM/VITAMIN D 500 MG TAB PO SCH (09:03)
[2021-10-22] MEDS: HumaLOG INSULIN (NovoLOG) PER UNIT SC SCH ×4 (09:03→21:00)
[2021-10-22] MEDS: MULTIVITAMINS/MINERALS THERAP 1 TAB PO SCH (09:04)
[2021-10-22] MEDS: ATORVASTATIN 20 MG TAB PO SCH (09:04)
[2021-10-22] MEDS: CO-ENZYME Q10 50 MG CAP PO SCH ×2 (09:04→21:28)
[2021-10-22] MEDS: DOCUSATE SODIUM 100MG CAPSULE PO SCH ×2 (09:04→21:27)
[2021-10-22] MEDS: amLODIPine 5 MG TAB PO SCH (09:04)
[2021-10-22] MEDS: ENOXAPARIN 40MG/0.4ML SYRINGE (J1650 PER 10MG) SC SCH (09:05)
[2021-10-22] MEDS: VANCOMYCIN HCL 1,000 MG, VIAL MATE ADAPTER 1 EACH in NS 250 ML IV SCH ×2 (12:27→13:34)
[2021-10-22] MEDS: **NOTE PATIENT COMMENT** MISC XX SCH (21:00)
[2021-10-22] MEDS: GABAPENTIN 300 MG CAP PO SCH (21:27)
[2021-10-22] MEDS: traZODone 50 MG TAB PO PRN (21:27)
[2021-10-22] MEDS: RAMELTEON 8 MG TAB (ROZEREM) PO SCH (21:28)
[2021-10-22] MEDS: LATANOPROST 0.005% OPHTH SOLN 2.5 ML OU SCH (21:30)
[2021-10-22] MEDS: LEVEMIR (INSULIN DETEMIR) 1 UNITS/0.01ML SC SCH (21:30)
[2021-10-23] MEDS: SODIUM CHLORIDE 0.9% INJ 10 ML SYR IV SCH ×2 (05:21→17:37)
[2021-10-23 05:57] VITALS: BP 154/78
[2021-10-23 05:58] LABS: HEMATOCRIT 30.1 % (42.0-52.0); MEAN CORPUSCULAR HEMOGLOBIN 32.2 pg (27.0-33.0); MEAN CORPUSCULAR HGB CONC 33.2 g/dl (32.0-36.5); MEAN CORPUSCULAR VOLUME 96.8 fl (80.0-96.0); PLATELET COUNT, AUTOMATED 136 10^3/uL (150-450); RED BLOOD COUNT 3.11 10^6/uL (4.30-6.10); WHITE BLOOD COUNT 6.5 10^3/uL (4.0-10.0)
[2021-10-23 06:20] LABS: BLOOD UREA NITROGEN 27 MG/DL (7-18); CALCIUM LEVEL 8.7 MG/DL (8.8-10.2); CARBON DIOXIDE LEVEL 28 MEQ/L (21-32); CHLORIDE LEVEL 106 MEQ/L (98-107); GLOMERULAR FILTRATION RATE > 60.0 (>42); GLUCOSE, FASTING 153 MG/DL (70-100); MAGNESIUM LEVEL 1.9 MG/DL (1.8-2.4); SODIUM LEVEL 140 MEQ/L (136-145)
[2021-10-23] MEDS: HumaLOG INSULIN (NovoLOG) PER UNIT SC SCH ×4 (07:46→21:00)
[2021-10-23] MEDS: ENOXAPARIN 40MG/0.4ML SYRINGE (J1650 PER 10MG) SC SCH (07:46)
[2021-10-23] MEDS: ATORVASTATIN 20 MG TAB PO SCH (07:47)
[2021-10-23] MEDS: MULTIVITAMINS/MINERALS THERAP 1 TAB PO SCH (07:47)
[2021-10-23] MEDS: CO-ENZYME Q10 50 MG CAP PO SCH ×2 (07:47→21:56)
[2021-10-23] MEDS: CALCIUM/VITAMIN D 500 MG TAB PO SCH (07:47)
[2021-10-23] MEDS: predniSONE 10 MG TAB PO SCH (07:47)
[2021-10-23] MEDS: DOCUSATE SODIUM 100MG CAPSULE PO SCH ×2 (07:47→21:56)
[2021-10-23] MEDS: lisinopriL 40MG TAB PO SCH (07:48)
[2021-10-23] MEDS: BACLOFEN 5MG PER 1/2 TABLET PO SCH ×2 (07:48→21:56)
[2021-10-23] MEDS: LACTOBACILLUS ACIDOPHILUS CAP (BACID) PO SCH (07:48)
[2021-10-23] MEDS: PANTOPRAZOLE 40MG TAB (PROTONIX) PO SCH (07:48)
[2021-10-23] MEDS: MIRALAX *UNIT DOSE* 17GM PACKET PO SCH (07:48)
[2021-10-23] MEDS: amLODIPine 5 MG TAB PO SCH (07:48)
[2021-10-23] MEDS: LIDOCAINE 5% (LIDODERM) PATCH TOP SCH (07:49)
[2021-10-23] MEDS: VANCOMYCIN HCL 1,000 MG, VIAL MATE ADAPTER 1 EACH in NS 250 ML IV SCH ×2 (10:55→12:03)
[2021-10-23] MEDS: SODIUM CHLORIDE 0.9% INJ 10 ML SYR IV PRN (13:08)
[2021-10-23] MEDS: **NOTE PATIENT COMMENT** MISC XX SCH (21:00)
[2021-10-23] MEDS: GABAPENTIN 300 MG CAP PO SCH (21:56)
[2021-10-23] MEDS: RAMELTEON 8 MG TAB (ROZEREM) PO SCH (21:57)
[2021-10-23] MEDS: traZODone 50 MG TAB PO PRN (21:57)
[2021-10-23] MEDS: LATANOPROST 0.005% OPHTH SOLN 2.5 ML OU SCH (21:58)
[2021-10-23] MEDS: LEVEMIR (INSULIN DETEMIR) 1 UNITS/0.01ML SC SCH (21:58)
[2021-10-24] MEDS: SODIUM CHLORIDE 0.9% INJ 10 ML SYR IV SCH ×2 (05:17→17:41)
[2021-10-24 06:00] VITALS: BP 111/79
[2021-10-24] MEDS: HumaLOG INSULIN (NovoLOG) PER UNIT SC SCH ×4 (08:36→21:00)
[2021-10-24] MEDS: MULTIVITAMINS/MINERALS THERAP 1 TAB PO SCH (08:37)
[2021-10-24] MEDS: ENOXAPARIN 40MG/0.4ML SYRINGE (J1650 PER 10MG) SC SCH (08:37)
[2021-10-24] MEDS: MIRALAX *UNIT DOSE* 17GM PACKET PO SCH (08:37)
[2021-10-24] MEDS: DOCUSATE SODIUM 100MG CAPSULE PO SCH ×2 (08:37→21:00)
[2021-10-24] MEDS: CALCIUM/VITAMIN D 500 MG TAB PO SCH (08:37)
[2021-10-24] MEDS: CO-ENZYME Q10 50 MG CAP PO SCH ×2 (08:37→20:25)
[2021-10-24] MEDS: lisinopriL 40MG TAB PO SCH (08:37)
[2021-10-24] MEDS: ATORVASTATIN 20 MG TAB PO SCH (08:37)
[2021-10-24] MEDS: predniSONE 10 MG TAB PO SCH (08:38)
[2021-10-24] MEDS: BACLOFEN 5MG PER 1/2 TABLET PO SCH ×3 (08:38→20:25)
[2021-10-24] MEDS: LIDOCAINE 5% (LIDODERM) PATCH TOP SCH (08:38)
[2021-10-24] MEDS: LACTOBACILLUS ACIDOPHILUS CAP (BACID) PO SCH (08:38)
[2021-10-24] MEDS: PANTOPRAZOLE 40MG TAB (PROTONIX) PO SCH (08:38)
[2021-10-24] MEDS: amLODIPine 5 MG TAB PO SCH (08:57)
[2021-10-24] MEDS: VANCOMYCIN HCL 1,000 MG, VIAL MATE ADAPTER 1 EACH in NS 250 ML IV SCH ×2 (11:27→12:33)
[2021-10-24] MEDS: ACETAMINOPHEN 500 MG TAB PO PRN (11:28)
[2021-10-24] MEDS ORDERED: oxyCODONE 5MG TAB PO PRN (13:45)
[2021-10-24] MEDS: GABAPENTIN 300 MG CAP PO SCH ×2 (14:05→20:25)
[2021-10-24] MEDS: RAMELTEON 8 MG TAB (ROZEREM) PO SCH (20:25)
[2021-10-24] MEDS: LEVEMIR (INSULIN DETEMIR) 1 UNITS/0.01ML SC SCH (20:26)
[2021-10-24] MEDS: **NOTE PATIENT COMMENT** MISC XX SCH (20:26)
[2021-10-24] MEDS: LATANOPROST 0.005% OPHTH SOLN 2.5 ML OU SCH (20:26)
[2021-10-25 04:56] VITALS: BP 141/83
[2021-10-25 06:08] LABS: HEMATOCRIT 30.6 % (42.0-52.0); HEMOGLOBIN 10.2 g/dl (13.5-17.5); MEAN CORPUSCULAR HEMOGLOBIN 32.3 pg (27.0-33.0); MEAN CORPUSCULAR HGB CONC 33.3 g/dl (32.0-36.5); MEAN CORPUSCULAR VOLUME 96.8 fl (80.0-96.0); PLATELET COUNT, AUTOMATED 161 10^3/uL (150-450); RED BLOOD COUNT 3.16 10^6/uL (4.30-6.10); WHITE BLOOD COUNT 8.8 10^3/uL (4.0-10.0)
[2021-10-25] MEDS: SODIUM CHLORIDE 0.9% INJ 10 ML SYR IV SCH (06:21)
[2021-10-25 06:25] LABS: BLOOD UREA NITROGEN 26 MG/DL (7-18); CALCIUM LEVEL 9.5 MG/DL (8.8-10.2); CARBON DIOXIDE LEVEL 26 MEQ/L (21-32); CHLORIDE LEVEL 107 MEQ/L (98-107); CREATININE FOR GFR 0.93 MG/DL (0.70-1.30); GLOMERULAR FILTRATION RATE > 60.0 (>42); GLUCOSE, FASTING 171 MG/DL (70-100); MAGNESIUM LEVEL 2.1 MG/DL (1.8-2.4); SODIUM LEVEL 140 MEQ/L (136-145)
[2021-10-25] MEDS: MIRALAX *UNIT DOSE* 17GM PACKET PO SCH (07:55)
[2021-10-25] MEDS: LIDOCAINE 5% (LIDODERM) PATCH TOP SCH ×2 (08:06→08:19)
[2021-10-25] MEDS: HumaLOG INSULIN (NovoLOG) PER UNIT SC SCH ×2 (08:12→11:34)
[2021-10-25] MEDS: LACTOBACILLUS ACIDOPHILUS CAP (BACID) PO SCH (08:13)
[2021-10-25] MEDS: DOCUSATE SODIUM 100MG CAPSULE PO SCH (08:13)
[2021-10-25] MEDS: ATORVASTATIN 20 MG TAB PO SCH (08:13)
[2021-10-25] MEDS: ENOXAPARIN 40MG/0.4ML SYRINGE (J1650 PER 10MG) SC SCH (08:13)
[2021-10-25] MEDS: CO-ENZYME Q10 50 MG CAP PO SCH (08:13)
[2021-10-25] MEDS: GABAPENTIN 300 MG CAP PO SCH (08:13)
[2021-10-25] MEDS: lisinopriL 40MG TAB PO SCH (08:13)
[2021-10-25] MEDS: BACTRIM 160MG/800MG DS TAB PO SCH (08:14)
[2021-10-25] MEDS: PANTOPRAZOLE 40MG TAB (PROTONIX) PO SCH (08:14)
[2021-10-25] MEDS: MULTIVITAMINS/MINERALS THERAP 1 TAB PO SCH (08:14)
[2021-10-25] MEDS: CALCIUM/VITAMIN D 500 MG TAB PO SCH (08:14)
[2021-10-25] MEDS: BACLOFEN 5MG PER 1/2 TABLET PO SCH (08:14)
[2021-10-25] MEDS: predniSONE 10 MG TAB PO SCH (08:14)
[2021-10-25 08:15] VITALS: BP 143/83
[2021-10-25] MEDS: amLODIPine 5 MG TAB PO SCH (08:15)
[2021-10-25] MEDS ORDERED: PRED10TA2 PO (09:09)
[2021-10-25] MEDS ORDERED: VANC1PIG IV ×2 (09:09→14:17)
[2021-10-25] MEDS ORDERED: INSULANT SC (09:09)
[2021-10-25] MEDS: VANCOMYCIN HCL 1,000 MG, VIAL MATE ADAPTER 1 EACH in NS 250 ML IV SCH ×2 (10:55→11:35)
[2021-10-25] MEDS ORDERED: GABA-282 PO (10:57)
[2021-10-25] MEDS ORDERED: BACL10TA2 PO (10:57)
[2021-10-25] MEDS: SODIUM CHLORIDE 0.9% INJ 10 ML SYR IV PRN (11:35)
== END 2021-10-25 13:32 | DRG 91 ==
LOC: M ED 14:44 → M ED INP 14:45 → M MSPAV 10-07 00:02 → OBSVTOIN 10-08 10:24
PROVIDERS: ADMIT Internal Medicine; ATTEND Internal Medicine
DX: G95.89 Other specified diseases of spinal cord (principal); G82.50 Quadriplegia, unspecified; M47.12 Other spondylosis with myelopathy, cervical region; T81.40XA Infection following a procedure, unspecified, initial encounter; M43.22 Fusion of spine, cervical region; E11.65 Type 2 diabetes mellitus with hyperglycemia; Z79.52 Long term (current) use of systemic steroids; F41.9 Anxiety disorder, unspecified; G47.00 Insomnia, unspecified; E78.5 Hyperlipidemia, unspecified; G37.3 Acute transverse myelitis in demyelinating disease of central nervous system; T38.0X5A Adverse effect of glucocorticoids and synthetic analogues, initial encounter; I10 Essential (primary) hypertension; Z66 Do not resuscitate; Z79.4 Long term (current) use of insulin; Z79.899 Other long term (current) drug therapy; Z20.822 Contact with and (suspected) exposure to COVID-19; K21.9 Gastro-esophageal reflux disease without esophagitis; Z96.0 Presence of urogenital implants; D69.6 Thrombocytopenia, unspecified; D64.9 Anemia, unspecified; L89.151 Pressure ulcer of sacral region, stage 1

== ENCOUNTER → 2021-10-27 | Outpatient (REF) ==
[~2021-10-27] MED LIST changes: +ACET500T15 PO; +BACITAB PO; +BACT800T5 PO; +BISA10SU27 PR; +CYCL5TAB PO; +DEXT4TAB15 PO; +DICL20GE TOP; +ENOX40IN3 SC; +GLUC1KIT IM; +INSULANT SC; +LIDO1PAD TOP; +MELA10CA2 PO; +OYST500T11 PO; +PRED10PA2 PO; +ROZE8TAB16 PO; +TRAZ-186 PO; +VANC1PIG IV; +VITA400C53 PO; +XALA0.007 OU
== END ==
LOC: SKLAB3 11:30
PROVIDERS: ATTEND Internal Medicine
DX: G95.89 Other specified diseases of spinal cord (principal)

== ENCOUNTER → 2021-10-30 | Outpatient (REF) | payer MEDICARE, OTHER ==
[2021-10-30 12:08] LABS: HEMATOCRIT 31.2 % (42.0-52.0); HEMOGLOBIN 10.4 g/dl (13.5-17.5); MEAN CORPUSCULAR HEMOGLOBIN 32.1 pg (27.0-33.0); MEAN CORPUSCULAR HGB CONC 33.3 g/dl (32.0-36.5); MEAN CORPUSCULAR VOLUME 96.3 fl (80.0-96.0); PLATELET COUNT, AUTOMATED 187 10^3/uL (150-450); RED BLOOD COUNT 3.24 10^6/uL (4.30-6.10); WHITE BLOOD COUNT 9.9 10^3/uL (4.0-10.0)
[2021-10-30 12:31] LABS: ERYTHROCYTE SEDIMENTATION RATE 63 mm/hr (0-20)
== END ==
LOC: SKLAB3 11:29
PROVIDERS: ATTEND Internal Medicine
DX: D64.9 Anemia, unspecified (principal)

== ENCOUNTER → 2021-11-02 | Outpatient (REF) ==
[2021-11-02 08:15] LABS: HEMATOCRIT 32.5 % (42.0-52.0); HEMOGLOBIN 10.7 g/dl (13.5-17.5); MEAN CORPUSCULAR HEMOGLOBIN 32.3 pg (27.0-33.0); MEAN CORPUSCULAR HGB CONC 32.9 g/dl (32.0-36.5); MEAN CORPUSCULAR VOLUME 98.2 fl (80.0-96.0); PLATELET COUNT, AUTOMATED 188 10^3/uL (150-450); RED BLOOD COUNT 3.31 10^6/uL (4.30-6.10); WHITE BLOOD COUNT 8.2 10^3/uL (4.0-10.0)
[2021-11-02 08:45] LABS: BLOOD UREA NITROGEN 43 MG/DL (7-18); CALCIUM LEVEL 9.2 MG/DL (8.8-10.2); CARBON DIOXIDE LEVEL 27 MEQ/L (21-32); CHLORIDE LEVEL 106 MEQ/L (98-107); CREATININE FOR GFR 1.06 MG/DL (0.70-1.30); GLOMERULAR FILTRATION RATE > 60.0 (>42); GLUCOSE, FASTING 172 MG/DL (70-100); MAGNESIUM LEVEL 2.2 MG/DL (1.8-2.4); POTASSIUM SERUM 4.3 MEQ/L (3.5-5.1); SODIUM LEVEL 141 MEQ/L (136-145)
== END ==
LOC: SKLAB3 11:28
PROVIDERS: ATTEND Internal Medicine
DX: D64.9 Anemia, unspecified (principal); I10 Essential (primary) hypertension

== ENCOUNTER → 2021-11-09 | Outpatient (REF) | payer OTHER, MEDICARE ==
[2021-11-09 07:50] LABS: HEMOGLOBIN 10.5 g/dl (13.5-17.5); MEAN CORPUSCULAR HEMOGLOBIN 33.1 pg (27.0-33.0); MEAN CORPUSCULAR HGB CONC 33.9 g/dl (32.0-36.5); MEAN CORPUSCULAR VOLUME 97.8 fl (80.0-96.0); PLATELET COUNT, AUTOMATED 127 10^3/uL (150-450); RED BLOOD COUNT 3.17 10^6/uL (4.30-6.10); WHITE BLOOD COUNT 7.4 10^3/uL (4.0-10.0)
[2021-11-09 08:06] LABS: CALCIUM LEVEL 9.2 MG/DL (8.8-10.2); CREATININE FOR GFR 1.28 MG/DL (0.70-1.30); GLOMERULAR FILTRATION RATE 58.5 (>42); MAGNESIUM LEVEL 2.2 MG/DL (1.8-2.4); POTASSIUM SERUM 4.4 MEQ/L (3.5-5.1)
== END ==
LOC: SKLAB3 07:00
PROVIDERS: ATTEND Internal Medicine
DX: D64.9 Anemia, unspecified (principal); I10 Essential (primary) hypertension

== ENCOUNTER → 2021-11-16 | Outpatient (REF) | payer MEDICARE, OTHER ==
[2021-11-16 10:02] LABS: HEMATOCRIT 30.3 % (42.0-52.0); HEMOGLOBIN 9.8 g/dl (13.5-17.5); MEAN CORPUSCULAR HEMOGLOBIN 31.6 pg (27.0-33.0); MEAN CORPUSCULAR HGB CONC 32.3 g/dl (32.0-36.5); MEAN CORPUSCULAR VOLUME 97.7 fl (80.0-96.0); PLATELET COUNT, AUTOMATED 178 10^3/uL (150-450); WHITE BLOOD COUNT 6.6 10^3/uL (4.0-10.0)
[2021-11-16 10:32] LABS: BLOOD UREA NITROGEN 31 MG/DL (7-18); CALCIUM LEVEL 9.1 MG/DL (8.8-10.2); CARBON DIOXIDE LEVEL 25 MEQ/L (21-32); CHLORIDE LEVEL 108 MEQ/L (98-107); CREATININE FOR GFR 1.13 MG/DL (0.70-1.30); GLOMERULAR FILTRATION RATE > 60.0 (>42); GLUCOSE, FASTING 240 MG/DL (70-100); MAGNESIUM LEVEL 1.9 MG/DL (1.8-2.4); POTASSIUM SERUM 4.2 MEQ/L (3.5-5.1); SODIUM LEVEL 141 MEQ/L (136-145)
== END ==
LOC: SKLAB3 11:56
PROVIDERS: ATTEND Internal Medicine
DX: D64.9 Anemia, unspecified (principal); I10 Essential (primary) hypertension

== ENCOUNTER → 2021-11-23 | Outpatient (REF) ==
[2021-11-23 08:07] LABS: HEMATOCRIT 29.5 % (42.0-52.0); HEMOGLOBIN 9.7 g/dl (13.5-17.5); MEAN CORPUSCULAR HEMOGLOBIN 32.2 pg (27.0-33.0); MEAN CORPUSCULAR HGB CONC 32.9 g/dl (32.0-36.5); PLATELET COUNT, AUTOMATED 201 10^3/uL (150-450); RED BLOOD COUNT 3.01 10^6/uL (4.30-6.10); WHITE BLOOD COUNT 7.9 10^3/uL (4.0-10.0)
[2021-11-23 08:43] LABS: BLOOD UREA NITROGEN 25 MG/DL (7-18); CALCIUM LEVEL 8.9 MG/DL (8.8-10.2); CARBON DIOXIDE LEVEL 28 MEQ/L (21-32); CHLORIDE LEVEL 107 MEQ/L (98-107); CREATININE FOR GFR 1.12 MG/DL (0.70-1.30); GLOMERULAR FILTRATION RATE > 60.0 (>42); GLUCOSE, FASTING 159 MG/DL (70-100); MAGNESIUM LEVEL 2.1 MG/DL (1.8-2.4); POTASSIUM SERUM 4.5 MEQ/L (3.5-5.1); SODIUM LEVEL 141 MEQ/L (136-145)
== END ==
LOC: SKLAB3 07:00
PROVIDERS: ATTEND Internal Medicine
DX: I10 Essential (primary) hypertension (principal); D64.9 Anemia, unspecified

== ENCOUNTER → 2021-12-04 | Outpatient (REF) | payer OTHER, MEDICARE | LOC: SKLAB3 14:32 | DX: D64.9 Anemia, unspecified (principal) ==

== ENCOUNTER → 2022-01-04 | Outpatient (REF) ==
[2022-01-04 09:18] LABS: ALBUMIN 3.3 GM/DL (3.2-5.2); ALT/SGPT 124 U/L (12-78); BILIRUBIN,TOTAL 0.2 MG/DL (0.2-1.0); BLOOD UREA NITROGEN 19 MG/DL (7-18); CALCIUM LEVEL 8.9 MG/DL (8.8-10.2); CARBON DIOXIDE LEVEL 28 MEQ/L (21-32); CHLORIDE LEVEL 105 MEQ/L (98-107); CHOLESTEROL LEVEL 118 MG/DL (<200); CHOLESTEROL RISK RATIO 3.687 (<5); CREATININE FOR GFR 1.07 MG/DL (0.70-1.30); GLOMERULAR FILTRATION RATE > 60.0 (>42); GLUCOSE, FASTING 143 MG/DL (70-100); HDL CHOLESTEROL 32 MG/DL (>40); LDL CHOLESTEROL 59 MG/DL (<100); MAGNESIUM LEVEL 1.9 MG/DL (1.8-2.4); NON-HDL-C 86 MG/DL; POTASSIUM SERUM 4.1 MEQ/L (3.5-5.1); SODIUM LEVEL 139 MEQ/L (136-145); TRIGLYCERIDES LEVEL 136 MG/DL (<150)
== END ==
LOC: SKLAB3 09:50
PROVIDERS: ATTEND Nurse Practitioner Family
DX: E11.9 Type 2 diabetes mellitus without complications (principal); I10 Essential (primary) hypertension; G95.9 Disease of spinal cord, unspecified

== ENCOUNTER → 2022-01-14 | Outpatient (REF) | payer MEDICARE, OTHER | LOC: SKLAB3 12:16 | PROVIDERS: ATTEND Internal Medicine | DX: Z20.822 Contact with and (suspected) exposure to COVID-19 (principal) ==

== ENCOUNTER → 2022-01-18 | Outpatient (REF) ==
[2022-01-18 13:02] LABS: HEMATOCRIT 35.8 % (42.0-52.0); HEMOGLOBIN 11.9 g/dl (13.5-17.5); MEAN CORPUSCULAR HEMOGLOBIN 32.2 pg (27.0-33.0); MEAN CORPUSCULAR HGB CONC 33.2 g/dl (32.0-36.5); PLATELET COUNT, AUTOMATED 128 10^3/uL (150-450); RED BLOOD COUNT 3.69 10^6/uL (4.30-6.10); WHITE BLOOD COUNT 7.6 10^3/uL (4.0-10.0)
[2022-01-18 13:33] LABS: ALBUMIN 3.3 GM/DL (3.2-5.2); ALT/SGPT 93 U/L (12-78); BILIRUBIN,TOTAL 0.3 MG/DL (0.2-1.0); BLOOD UREA NITROGEN 19 MG/DL (7-18); CALCIUM LEVEL 9.3 MG/DL (8.8-10.2); CARBON DIOXIDE LEVEL 25 MEQ/L (21-32); CHLORIDE LEVEL 108 MEQ/L (98-107); CREATININE FOR GFR 1.07 MG/DL (0.70-1.30); GLOMERULAR FILTRATION RATE > 60.0 (>42); GLUCOSE, FASTING 166 MG/DL (70-100); POTASSIUM SERUM 4.2 MEQ/L (3.5-5.1); SODIUM LEVEL 140 MEQ/L (136-145); TOTAL PROTEIN 6.2 GM/DL (6.4-8.2)
== END ==
LOC: SKLAB3 08:13
PROVIDERS: ATTEND Nurse Practitioner Family
DX: U07.1 COVID-19 (principal)

== ENCOUNTER → 2022-01-20 | Outpatient (REF) ==
[2022-01-20 10:22] LABS: HEMATOCRIT 36.9 % (42.0-52.0); HEMOGLOBIN 12.1 g/dl (13.5-17.5); MEAN CORPUSCULAR HEMOGLOBIN 31.3 pg (27.0-33.0); MEAN CORPUSCULAR HGB CONC 32.8 g/dl (32.0-36.5); MEAN CORPUSCULAR VOLUME 95.3 fl (80.0-96.0); PLATELET COUNT, AUTOMATED 130 10^3/uL (150-450); RED BLOOD COUNT 3.87 10^6/uL (4.30-6.10); WHITE BLOOD COUNT 8.1 10^3/uL (4.0-10.0)
[2022-01-20 11:20] LABS: ALBUMIN 3.2 GM/DL (3.2-5.2); ALT/SGPT 89 U/L (12-78); BILIRUBIN,TOTAL 0.4 MG/DL (0.2-1.0); BLOOD UREA NITROGEN 18 MG/DL (7-18); CALCIUM LEVEL 8.8 MG/DL (8.8-10.2); CARBON DIOXIDE LEVEL 28 MEQ/L (21-32); CHLORIDE LEVEL 104 MEQ/L (98-107); CREATININE FOR GFR 1.11 MG/DL (0.70-1.30); GLOMERULAR FILTRATION RATE > 60.0 (>42); GLUCOSE, FASTING 193 MG/DL (70-100); POTASSIUM SERUM 4.1 MEQ/L (3.5-5.1); SODIUM LEVEL 138 MEQ/L (136-145); TOTAL PROTEIN 6.2 GM/DL (6.4-8.2)
== END ==
LOC: SKLAB2 10:04
PROVIDERS: ATTEND Nurse Practitioner Family
DX: U07.1 COVID-19 (principal)

== ENCOUNTER → 2022-01-24 | Outpatient (REF) ==
[2022-01-24 09:30] LABS: HEMATOCRIT 38.3 % (42.0-52.0); HEMOGLOBIN 12.8 g/dl (13.5-17.5); MEAN CORPUSCULAR HEMOGLOBIN 32.1 pg (27.0-33.0); MEAN CORPUSCULAR HGB CONC 33.4 g/dl (32.0-36.5); PLATELET COUNT, AUTOMATED 171 10^3/uL (150-450); RED BLOOD COUNT 3.99 10^6/uL (4.30-6.10); WHITE BLOOD COUNT 8.2 10^3/uL (4.0-10.0)
[2022-01-24 11:25] LABS: ALBUMIN 3.4 GM/DL (3.2-5.2); ALT/SGPT 95 U/L (12-78); BILIRUBIN,TOTAL 0.3 MG/DL (0.2-1.0); BLOOD UREA NITROGEN 19 MG/DL (7-18); CALCIUM LEVEL 9.2 MG/DL (8.8-10.2); CARBON DIOXIDE LEVEL 27 MEQ/L (21-32); CHLORIDE LEVEL 103 MEQ/L (98-107); CREATININE FOR GFR 1.01 MG/DL (0.70-1.30); GLOMERULAR FILTRATION RATE > 60.0 (>42); GLUCOSE, FASTING 150 MG/DL (70-100); POTASSIUM SERUM 4.3 MEQ/L (3.5-5.1); SODIUM LEVEL 138 MEQ/L (136-145); TOTAL PROTEIN 6.6 GM/DL (6.4-8.2)
== END ==
LOC: SKLAB2 15:02
PROVIDERS: ATTEND Nurse Practitioner Family
DX: U07.1 COVID-19 (principal)

== ENCOUNTER → 2022-01-27 | Outpatient (REF) ==
[~2022-01-27] MED LIST changes: +APAP500T10 PO; +BARRIER CREAM; +BISA10SU20 PR; +FLEEENE12 PR; +GUAI100S51 PO; +INSULADS INJ; +LISI30TA4 PO; +MOM30SS PO; +VITA400C81 PO
[2022-01-27 13:43] LABS: HEMATOCRIT 36.3 % (42.0-52.0); HEMOGLOBIN 12.1 g/dl (13.5-17.5); MEAN CORPUSCULAR HEMOGLOBIN 31.8 pg (27.0-33.0); MEAN CORPUSCULAR HGB CONC 33.3 g/dl (32.0-36.5); MEAN CORPUSCULAR VOLUME 95.3 fl (80.0-96.0); PLATELET COUNT, AUTOMATED 164 10^3/uL (150-450); RED BLOOD COUNT 3.81 10^6/uL (4.30-6.10); WHITE BLOOD COUNT 7.5 10^3/uL (4.0-10.0)
[2022-01-27 14:57] LABS: ALBUMIN 3.2 GM/DL (3.2-5.2); ALT/SGPT 84 U/L (12-78); BILIRUBIN,TOTAL 0.2 MG/DL (0.2-1.0); BLOOD UREA NITROGEN 18 MG/DL (7-18); CALCIUM LEVEL 8.8 MG/DL (8.8-10.2); CARBON DIOXIDE LEVEL 25 MEQ/L (21-32); CHLORIDE LEVEL 104 MEQ/L (98-107); CREATININE FOR GFR 1.15 MG/DL (0.70-1.30); GLOMERULAR FILTRATION RATE > 60.0 (>42); GLUCOSE, FASTING 165 MG/DL (70-100); POTASSIUM SERUM 4.1 MEQ/L (3.5-5.1); SODIUM LEVEL 137 MEQ/L (136-145); TOTAL PROTEIN 6.4 GM/DL (6.4-8.2)
== END ==
LOC: SKLAB2 07:00
PROVIDERS: ATTEND Nurse Practitioner Family
DX: U07.1 COVID-19 (principal)

== ENCOUNTER 2022-01-29 21:00 | Emergency (ER) | payer OTHER, MEDICARE ==
[~2022-01-29] VITALS: Ht 185.4 cm; Wt 107.2 kg
[~2022-01-29 21:00] MED LIST changes: -APAP500T10 PO; -BARRIER CREAM; -BISA10SU20 PR; -FLEEENE12 PR; -GUAI100S51 PO; -INSULADS INJ; -LISI30TA4 PO; -MOM30SS PO; -VITA400C81 PO
[2022-01-29] MEDS ORDERED: GABA-282 PO (23:04)
[2022-01-29] MEDS ORDERED: BISA10SU20 PR (23:04)
[2022-01-29] MEDS ORDERED: INSULADS INJ (23:04)
[2022-01-29] MEDS ORDERED: GUAI100S51 PO (23:04)
[2022-01-29] MEDS ORDERED: FLEEENE12 PR (23:04)
[2022-01-29] MEDS ORDERED: BACITAB PO (23:04)
[2022-01-29] MEDS ORDERED: APAP500T10 PO (23:04)
[2022-01-29] MEDS ORDERED: MELA10CA2 PO (23:04)
[2022-01-29] MEDS ORDERED: MOM30SS PO (23:04)
[2022-01-29] MEDS ORDERED: LISI30TA4 PO (23:04)
[2022-01-29] MEDS ORDERED: VITA400C81 PO (23:04)
[2022-01-29] MEDS ORDERED: BARRIER CREAM (23:04)
[2022-01-29] MEDS ORDERED: BACT800T5 PO (23:04)
[2022-01-29] MEDS ORDERED: BACL10TA2 PO (23:04)
[2022-01-29] MEDS ORDERED: HOME MED LIST COMPLETE! XX SCH (23:10)
[2022-01-30] MEDS ORDERED: GABAPENTIN 300 MG CAP PO ONE (06:35)
[2022-01-30 07:11] LABS: BASO % 0.4 % (0.0-1.0); EOS # 0.1 10^3/uL (0.0-0.5); EOS % 0.6 % (0.0-3.0); HEMATOCRIT 36.4 % (42.0-52.0); LYMPH # 2.3 10^3/uL (1.5-5.0); MEAN CORPUSCULAR HEMOGLOBIN 31.3 pg (27.0-33.0); MEAN CORPUSCULAR VOLUME 94.8 fl (80.0-96.0); MONO # 1.3 10^3/uL (0.0-0.8); MONO % 16.3 % (2.0-8.0); NEUTROPHILS # 4.4 10^3/uL (1.5-8.5); NEUTROPHILS % 53.7 % (36.0-66.0); PLATELET COUNT, AUTOMATED 145 10^3/uL (150-450); RED BLOOD COUNT 3.84 10^6/uL (4.30-6.10); WHITE BLOOD COUNT 8.2 10^3/uL (4.0-10.0)
[2022-01-30 07:46] LABS: ALBUMIN 3.3 GM/DL (3.2-5.2); BILIRUBIN,DIRECT 0.3 MG/DL (0.0-0.2); BILIRUBIN,TOTAL 0.2 MG/DL (0.2-1.0); C REACTIVE PROTEIN QUANTITATIV 0.39 MG/DL (0.00-0.30); TOTAL PROTEIN 6.4 GM/DL (6.4-8.2); URIC ACID 8.7 MG/DL (3.5-7.2)
[2022-01-30] MEDS ORDERED: ACETAMINOPHEN 325 MG TAB PO ONE (08:25)
[2022-01-30 09:26] VITALS: BP 138/83
== END 2022-01-30 09:29 | disposition home or self-care (01) ==
LOC: M ED 21:00
DX: M10.9 Gout, unspecified (principal); E11.9 Type 2 diabetes mellitus without complications; I10 Essential (primary) hypertension; E78.5 Hyperlipidemia, unspecified; K21.9 Gastro-esophageal reflux disease without esophagitis; Z79.899 Other long term (current) drug therapy; Z79.4 Long term (current) use of insulin; Z79.811 Long term (current) use of aromatase inhibitors

== ENCOUNTER → 2022-01-31 | Outpatient (REF) ==
[~2022-01-31] MED LIST changes: +APAP500T10 PO; +BARRIER CREAM; +BISA10SU20 PR; +FLEEENE12 PR; +GUAI100S51 PO; +INSULADS INJ; +LISI30TA4 PO; +MOM30SS PO; +VITA400C81 PO
[2022-01-31 10:28] LABS: HEMOGLOBIN 12.3 g/dl (13.5-17.5); MEAN CORPUSCULAR HEMOGLOBIN 31.6 pg (27.0-33.0); MEAN CORPUSCULAR HGB CONC 33.2 g/dl (32.0-36.5); MEAN CORPUSCULAR VOLUME 95.1 fl (80.0-96.0); PLATELET COUNT, AUTOMATED 155 10^3/uL (150-450); RED BLOOD COUNT 3.89 10^6/uL (4.30-6.10); WHITE BLOOD COUNT 7.1 10^3/uL (4.0-10.0)
[2022-01-31 11:14] LABS: ALBUMIN 3.5 GM/DL (3.2-5.2); ALT/SGPT 82 U/L (12-78); BILIRUBIN,TOTAL 0.3 MG/DL (0.2-1.0); BLOOD UREA NITROGEN 21 MG/DL (7-18); CALCIUM LEVEL 9.1 MG/DL (8.8-10.2); CARBON DIOXIDE LEVEL 26 MEQ/L (21-32); CHLORIDE LEVEL 103 MEQ/L (98-107); GLOMERULAR FILTRATION RATE > 60.0 (>42); GLUCOSE, FASTING 200 MG/DL (70-100); POTASSIUM SERUM 4.4 MEQ/L (3.5-5.1); SODIUM LEVEL 136 MEQ/L (136-145); TOTAL PROTEIN 6.6 GM/DL (6.4-8.2)
== END ==
LOC: SKLAB2 07:00
PROVIDERS: ATTEND Nurse Practitioner Family
DX: U07.1 COVID-19 (principal)

== ENCOUNTER → 2022-03-08 | Outpatient (REF) ==
[2022-03-08 12:14] LABS: BLOOD UREA NITROGEN 17 MG/DL (7-18); CARBON DIOXIDE LEVEL 27 MEQ/L (21-32); CHLORIDE LEVEL 104 MEQ/L (98-107); CHOLESTEROL LEVEL 113 MG/DL (<200); CHOLESTEROL RISK RATIO 3.424 (<5); CREATININE FOR GFR 1.18 MG/DL (0.70-1.30); GLOMERULAR FILTRATION RATE > 60.0 (>42); GLUCOSE, FASTING 151 MG/DL (70-100); HDL CHOLESTEROL 33 MG/DL (>40); LDL CHOLESTEROL 52 MG/DL (<100); NON-HDL-C 80 MG/DL; POTASSIUM SERUM 4.1 MEQ/L (3.5-5.1); SODIUM LEVEL 138 MEQ/L (136-145); TRIGLYCERIDES LEVEL 139 MG/DL (<150)
== END ==
LOC: SKLAB3 10:56
PROVIDERS: ATTEND Nurse Practitioner Family
DX: E78.5 Hyperlipidemia, unspecified (principal)

== ENCOUNTER → 2022-04-12 | Outpatient (REF) | payer MEDICARE, OTHER ==
[~2022-04-12] MED LIST changes: +VITA180C2 PO; -VITA400C81 PO
[2022-04-12 15:44] LABS: BASO % 0.4 % (0.0-1.0); EOS # 0.1 10^3/uL (0.0-0.5); EOS % 1.2 % (0.0-3.0); HEMATOCRIT 39.2 % (42.0-52.0); HEMOGLOBIN 12.7 g/dl (13.5-17.5); LYMPH # 2.2 10^3/uL (1.5-5.0); LYMPH % 39.3 % (24.0-44.0); MEAN CORPUSCULAR HEMOGLOBIN 31.5 pg (27.0-33.0); MEAN CORPUSCULAR HGB CONC 32.4 g/dl (32.0-36.5); MEAN CORPUSCULAR VOLUME 97.3 fl (80.0-96.0); MONO # 0.8 10^3/uL (0.0-0.8); MONO % 13.7 % (2.0-8.0); NEUTROPHILS # 2.6 10^3/uL (1.5-8.5); NEUTROPHILS % 44.7 % (36.0-66.0); PLATELET COUNT, AUTOMATED 146 10^3/uL (150-450); RED BLOOD COUNT 4.03 10^6/uL (4.30-6.10); WHITE BLOOD COUNT 5.7 10^3/uL (4.0-10.0)
[2022-04-12 17:06] LABS: ALBUMIN 3.7 GM/DL (3.2-5.2); BILIRUBIN,TOTAL 0.5 MG/DL (0.2-1.0); CHOLESTEROL RISK RATIO 2.742 (<5); CREATININE FOR GFR 1.43 MG/DL (0.70-1.30); GLOMERULAR FILTRATION RATE 51.3 (>42); POTASSIUM SERUM 3.7 MEQ/L (3.5-5.1); TOTAL PROTEIN 6.9 GM/DL (6.4-8.2); URIC ACID 7.4 MG/DL (3.5-7.2)
[2022-04-12 17:18] LABS: HEMOGLOBIN A1c 6.7 %
== END ==
LOC: M LAB REF 15:24
PROVIDERS: ATTEND Physician Assistant
DX: E11.9 Type 2 diabetes mellitus without complications (principal); E78.5 Hyperlipidemia, unspecified; I10 Essential (primary) hypertension; M10.9 Gout, unspecified

== ENCOUNTER → 2023-07-25 | Outpatient (CLI) | payer OTHER, MEDICARE ==
[~2023-07-25] MED LIST changes: -DEXT4TAB15 PO; +DEXT4TAB9 PO; +SENN-111 PO; +SENN-186 PO; -SENN-80 PO; -SENN18TA PO
[2023-07-27 23:07] LABS: PSA FREE 0.96 ng/mL; PSA TOTAL 7.4 ng/mL (0.0-4.0)
== END ==
LOC: M PLALAB 12:38
PROVIDERS: ATTEND Physician Assistant
DX: R97.20 Elevated prostate specific antigen [PSA] (principal)

== ENCOUNTER → 2023-08-08 | Outpatient (REF) | payer OTHER, MEDICARE ==
[~2023-08-08] MED LIST changes: -BISA10SU20 PR; +BISA10SU59 PR; -MIRA1POW3 PO; +MIRA33506 PO
== END ==
LOC: M SMT PRO 10:56
PROVIDERS: ATTEND Urology
DX: R97.20 Elevated prostate specific antigen [PSA] (principal)

== ENCOUNTER → 2023-11-16 | Outpatient (CLI) | payer OTHER, MEDICARE | LOC: M PLALAB 10:54 | PROVIDERS: ATTEND Urology | DX: C61 Malignant neoplasm of prostate (principal) ==

== ENCOUNTER → 2024-01-08 | Outpatient (CLI) | payer OTHER, MEDICARE ==
[2024-01-08 12:45] LABS: BASO % 0.1 % (0.0-1.0); EOS % 0.3 % (0.0-3.0); HEMATOCRIT 41.7 % (42.0-52.0); HEMOGLOBIN 13.9 g/dl (13.5-17.5); LYMPH # 1.9 10^3/uL (1.5-5.0); LYMPH % 23.8 % (24.0-44.0); MEAN CORPUSCULAR HEMOGLOBIN 31.1 pg (27.0-33.0); MEAN CORPUSCULAR HGB CONC 33.3 g/dl (32.0-36.5); MEAN CORPUSCULAR VOLUME 93.3 fl (80.0-96.0); MONO # 1.9 10^3/uL (0.0-0.8); MONO % 23.7 % (2.0-8.0); NEUTROPHILS % 50.7 % (36.0-66.0); RED BLOOD COUNT 4.47 10^6/uL (4.30-6.10); WHITE BLOOD COUNT 7.8 10^3/uL (4.0-10.0)
[2024-01-08 13:06] LABS: URIC ACID 5.1 MG/DL (3.7-9.2)
[2024-01-08 13:09] LABS: ALBUMIN 3.8 G/DL (3.2-5.2); ALKALINE PHOSPHATASE 87 U/L (46-116); ALT/SGPT 25 U/L (7.0-40); AST/SGOT 19 U/L (<34); BILIRUBIN,TOTAL 0.7 MG/DL (0.3-1.2); BLOOD UREA NITROGEN 20 MG/DL (9-23); CARBON DIOXIDE LEVEL 25 MMOL/L (20-31); CHLORIDE LEVEL 108 MMOL/L (98-107); CHOLESTEROL LEVEL 103 MG/DL (<200); CHOLESTEROL RISK RATIO 3.99 (<5); CREATININE FOR GFR 0.99 MG/DL (0.70-1.30); GLOMERULAR FILTRATION RATE > 60.0 (>42); GLUCOSE, FASTING 165 MG/DL (74-106); HDL CHOLESTEROL 25.8 MG/DL (>40); LDL CHOLESTEROL 50.8 MG/DL (<100); NON-HDL-C 77.2 MG/DL; POTASSIUM SERUM 3.7 MMOL/L (3.5-5.1); SODIUM LEVEL 141 MMOL/L (136-145); TOTAL PROTEIN 6.3 G/DL (5.7-8.2); TRIGLYCERIDES LEVEL 132 MG/DL (<150)
[2024-01-08 14:00] LABS: PLATELET COUNT, AUTOMATED 78 10^3/uL (150-450)
[2024-01-08 14:11] LABS: HEMOGLOBIN A1c 7.4 % (4.0-6.0)
== END ==
LOC: M PLALAB 08:29
PROVIDERS: ATTEND Nurse Practitioner Adult Health
DX: G61.0 Guillain-Barre syndrome (principal); K21.9 Gastro-esophageal reflux disease without esophagitis; E11.9 Type 2 diabetes mellitus without complications; E78.5 Hyperlipidemia, unspecified; M10.9 Gout, unspecified; Z79.899 Other long term (current) drug therapy

== ENCOUNTER → 2024-02-05 | Outpatient (CLI) | payer OTHER, MEDICARE | LOC: M PLALAB 08:02 | PROVIDERS: ATTEND Urology | DX: C61 Malignant neoplasm of prostate (principal) ==

== ENCOUNTER → 2024-07-01 | Outpatient (CLI) | payer OTHER, MEDICARE ==
[~2024-07-01] MED LIST changes: -CYCL5TAB PO; +CYCL5TAB4 PO; +GABA-1172 PO; -GABA-282 PO; -SENN-111 PO; +SENN-165 PO
== END ==
LOC: M PLALAB 08:45
PROVIDERS: ATTEND Urology
DX: C61 Malignant neoplasm of prostate (principal)

== ENCOUNTER → 2024-07-04 | Outpatient (CLI) | payer OTHER, MEDICARE ==
[2024-07-04 14:01] LABS: BASO # 0.1 10^3/uL (0.0-0.2); BASO % 0.8 % (0.0-1.0); EOS % 0.1 % (0.0-3.0); HEMATOCRIT 44.1 % (42.0-52.0); HEMOGLOBIN 14.9 g/dl (13.5-17.5); LYMPH % 35.6 % (24.0-44.0); MEAN CORPUSCULAR HGB CONC 33.8 g/dl (32.0-36.5); MEAN CORPUSCULAR VOLUME 88.7 fl (80.0-96.0); MONO # 1.2 10^3/uL (0.0-0.8); MONO % 14.7 % (2.0-8.0); NEUTROPHILS # 3.9 10^3/uL (1.5-8.5); NEUTROPHILS % 46.6 % (36.0-66.0); PLATELET COUNT, AUTOMATED 122 10^3/uL (150-450); RED BLOOD COUNT 4.97 10^6/uL (4.30-6.10); WHITE BLOOD COUNT 8.3 10^3/uL (4.0-10.0)
[2024-07-04 14:39] LABS: URIC ACID 6.9 MG/DL (3.7-9.2)
[2024-07-04 14:43] LABS: ALBUMIN 4.2 G/DL (3.2-5.2); ALKALINE PHOSPHATASE 88 U/L (40-129); ALT/SGPT 36 U/L (7.0-40); AST/SGOT 21 U/L (<34); BILIRUBIN,TOTAL 0.7 MG/DL (0.3-1.2); BLOOD UREA NITROGEN 29 MG/DL (9-23); CALCIUM LEVEL 8.8 MG/DL (8.3-10.6); CARBON DIOXIDE LEVEL 26 MMOL/L (20-31); CHLORIDE LEVEL 104 MMOL/L (98-107); CHOLESTEROL LEVEL 118 MG/DL (<200); CHOLESTEROL RISK RATIO 4.22 (<5); CREATININE FOR GFR 0.98 MG/DL (0.70-1.30); GLOMERULAR FILTRATION RATE > 60.0 (>42); GLUCOSE, FASTING 177 MG/DL (74-106); HDL CHOLESTEROL 27.9 MG/DL (>40); LDL CHOLESTEROL 45.7 MG/DL (<100); NON-HDL-C 90.1 MG/DL; SODIUM LEVEL 141 MMOL/L (136-145); TRIGLYCERIDES LEVEL 222 MG/DL (<150)
== END ==
LOC: M PLALAB 11:06
DX: E11.9 Type 2 diabetes mellitus without complications (principal)

== ENCOUNTER → 2024-09-16 | Outpatient (CLI) | payer OTHER, MEDICARE | LOC: M PLALAB 14:24 | PROVIDERS: ATTEND Urology | DX: C61 Malignant neoplasm of prostate (principal) ==

== ENCOUNTER → 2024-09-27 | Outpatient (CLI) | payer OTHER, MEDICARE ==
[2024-09-27 14:11] LABS: BASO % 0.3 % (0.0-1.0); EOS % 0.1 % (0.0-3.0); HEMATOCRIT 44.2 % (42.0-52.0); HEMOGLOBIN 14.5 g/dl (13.5-17.5); LYMPH # 2.7 10^3/uL (1.5-5.0); LYMPH % 23.9 % (24.0-44.0); MEAN CORPUSCULAR HEMOGLOBIN 29.9 pg (27.0-33.0); MEAN CORPUSCULAR HGB CONC 32.8 g/dl (32.0-36.5); MEAN CORPUSCULAR VOLUME 91.1 fl (80.0-96.0); MONO # 1.9 10^3/uL (0.0-0.8); MONO % 16.8 % (2.0-8.0); NEUTROPHILS # 6.5 10^3/uL (1.5-8.5); RED BLOOD COUNT 4.85 10^6/uL (4.30-6.10); WHITE BLOOD COUNT 11.3 10^3/uL (4.0-10.0)
[2024-09-27 14:13] LABS: ALBUMIN 3.9 G/DL (3.2-5.2); BILIRUBIN,TOTAL 0.6 MG/DL (0.3-1.2); CALCIUM LEVEL 8.5 MG/DL (8.3-10.6); CHOLESTEROL RISK RATIO 3.44 (<5); CREATININE FOR GFR 0.99 MG/DL (0.70-1.30); GLOMERULAR FILTRATION RATE 78.5 (>42); HDL CHOLESTEROL 27.3 MG/DL (>40); LDL CHOLESTEROL 35.3 MG/DL (<100); NON-HDL-C 66.7 MG/DL; TOTAL PROTEIN 6.9 G/DL (5.7-8.2)
[2024-09-27 14:14] LABS: URIC ACID 6.6 MG/DL (3.7-9.2)
[2024-09-27 14:32] LABS: HEMOGLOBIN A1c 7.6 % (4.0-6.0)
[2024-09-27 15:04] LABS: PLATELET COUNT, AUTOMATED 89 10^3/uL (150-450)
== END ==
LOC: M PLALAB 10:37
DX: E11.9 Type 2 diabetes mellitus without complications (principal)

== ENCOUNTER → 2025-01-24 | Outpatient (CLI) | payer OTHER, MEDICARE ==
[~2025-01-24] MED LIST changes: +CVS10CAP8 PO; -GLUC1KIT IM; +GLUC1VIA14 IM; +KETO120S5 TOP; -KETO2SHA8 TOP; +LISI40TA10 PO; -LISI40TA4 PO; -MELA10CA2 PO
== END ==
LOC: M PLALAB 15:06
PROVIDERS: ATTEND Urology
DX: C61 Malignant neoplasm of prostate (principal)

== ENCOUNTER → 2025-04-01 | Outpatient (CLI) | payer OTHER, MEDICARE ==
[2025-04-01 14:13] LABS: BASO # 0.0 10^3/uL (0.0-0.2); BASO % 0.4 % (0.0-1.0); EOS # 0.0 10^3/uL (0.0-0.5); EOS % 0.1 % (0.0-3.0); LYMPH # 2.3 10^3/uL (1.5-5.0); LYMPH % 28.0 % (24.0-44.0); MONO # 1.0 10^3/uL (0.0-0.8); MONO % 12.3 % (2.0-8.0); NEUTROPHILS # 4.8 10^3/uL (1.5-8.5); NEUTROPHILS % 57.4 % (36.0-66.0); PLATELET COUNT, AUTOMATED 111 10^3/uL (150-450)
[2025-04-01 14:43] LABS: ALT/SGPT 36.0 U/L (7.0-40); AST/SGOT 32.0 U/L (<34); CALCIUM LEVEL 9.4 MG/DL (8.3-10.6); CARBON DIOXIDE LEVEL 25.0 MMOL/L (20-31); CHLORIDE LEVEL 104.0 MMOL/L (98-107); CHOLESTEROL LEVEL 115.0 MG/DL (<200); CHOLESTEROL RISK RATIO 4.09 (<5); CREATININE FOR GFR 1.13 MG/DL (0.70-1.30); GLOMERULAR FILTRATION RATE 66.5 (>42); LDL CHOLESTEROL 52.9 MG/DL (<100); NON-HDL-C 86.9 MG/DL; POTASSIUM SERUM 4.2 MMOL/L (3.5-5.1); SODIUM LEVEL 142.0 MMOL/L (136-145); TRIGLYCERIDES LEVEL 170.0 MG/DL (<150)
[2025-04-01 14:50] LABS: ESTIMATED AVERAGE GLUCOSE 186.0 MG/DL (60-110)
== END ==
LOC: M PLALAB 11:34
DX: E11.9 Type 2 diabetes mellitus without complications (principal); M10.9 Gout, unspecified; I10 Essential (primary) hypertension; E78.5 Hyperlipidemia, unspecified; K21.9 Gastro-esophageal reflux disease without esophagitis

== ENCOUNTER → 2025-05-30 | Outpatient (CLI) | payer OTHER, MEDICARE ==
[2025-05-30 15:57] LABS: BASO # 0.0 10^3/uL (0.0-0.2); BASO % 0.4 % (0.0-1.0); EOS # 0.0 10^3/uL (0.0-0.5); EOS % 0.1 % (0.0-3.0); LYMPH # 2.8 10^3/uL (1.5-5.0); LYMPH % 36.3 % (24.0-44.0); MONO # 0.8 10^3/uL (0.0-0.8); MONO % 10.6 % (2.0-8.0); NEUTROPHILS # 4.0 10^3/uL (1.5-8.5); NEUTROPHILS % 51.3 % (36.0-66.0); PLATELET COUNT, AUTOMATED 123 10^3/uL (150-450)
[2025-05-30 16:16] LABS: ESTIMATED AVERAGE GLUCOSE 194.0 MG/DL (60-110)
[2025-05-30 16:27] LABS: ALT/SGPT 38.0 U/L (7.0-40); AST/SGOT 32.0 U/L (<34); CALCIUM LEVEL 9.3 MG/DL (8.3-10.6); CARBON DIOXIDE LEVEL 25.0 MMOL/L (20-31); CHLORIDE LEVEL 106.0 MMOL/L (98-107); CHOLESTEROL LEVEL 123.0 MG/DL (<200); CHOLESTEROL RISK RATIO 3.77 (<5); CREATININE FOR GFR 1.11 MG/DL (0.70-1.30); GLOMERULAR FILTRATION RATE 68.0 (>42); LDL CHOLESTEROL 60.6 MG/DL (<100); NON-HDL-C 90.4 MG/DL; POTASSIUM SERUM 4.1 MMOL/L (3.5-5.1); SODIUM LEVEL 142.0 MMOL/L (136-145); TRIGLYCERIDES LEVEL 149.0 MG/DL (<150)
== END ==
LOC: M PLALAB 12:58
PROVIDERS: ATTEND Nurse Practitioner Family
DX: E11.9 Type 2 diabetes mellitus without complications (principal)

== ENCOUNTER → 2025-06-09 | Outpatient (REF) | payer OTHER, MEDICARE | LOC: M LABDRAWP 10:12 → M SMT 10:12 | PROVIDERS: ATTEND Urology | DX: C61 Malignant neoplasm of prostate (principal) ==